=== PATIENT | female | born 1955 | race Caucasian/White ===

== ENCOUNTER 2020-03-30 10:51 | Outpatient (CLI) | payer OTHER, SELFPAY ==
--- NOTE | ~2020-03-30 | MM_ITS ---
EXAMINATION: MM screening carlos BI w marzena HISTORY: Screening mammogram TECHNIQUE: Craniocaudal and mediolateral oblique 3-D tomosynthesis images were obtained and synthetic 2-D images were generated. CAD analysis was submitted and interpreted. COMPARISON: 12/29/2017, 12/28/2015, 11/01 2014 bilateral digital screening mammogram examinations BREAST PARENCHYMAL COMPOSITION: There are scattered areas of fibroglandular density. FINDINGS: Biopsy marker on the left breast; history of prior benign left breast biopsy. There is no e vidence of suspicious mass, calcification, or architectural distortion to suggest malignancy in eithe r breast. There has been no suspicious interval change. IMPRESSION: 1. No mammographic evidence of malignancy. 2. Recommend routine screening mammography in one year. BI-RADS Category 2: Benign finding(s). Reviewed, dictated and finalized at location A.
== END 2020-03-30 10:52 | disposition home or self-care (01) ==
PROVIDERS: PCP Family Medicine; Visit Provider Obstetrics & Gynecology
DX: Z12.31 Encounter for screening mammogram for malignant neoplasm of breast (principal)
CPT/HCPCS: 77063; 77067

== ENCOUNTER 2021-10-08 14:34 | Outpatient (CLI) | payer BC, SELFPAY ==
--- NOTE | ~2021-10-08 | MM_ITS ---
EXAMINATION: MM screening carlos BI w marzena HISTORY: Screening mammogram TECHNIQUE: Craniocaudal and mediolateral oblique 3-D tomosynthesis images were obtained and synthetic 2-D images were generated. CAD analysis was submitted and interpreted. COMPARISON: 03/30/2020, 12/25/2017, 12/28/2015 bilateral screening mammogram examinations BREAST PARENCHYMAL COMPOSITION: The breasts are almost entirely fatty. FINDINGS: There is a biopsy marker on the left; history of prior benign left breast biopsy. There is no evidence of suspicious mass, calcification, or architectural distortion to suggest malignancy in e ither breast. There has been no suspicious interval change. IMPRESSION: 1. No mammographic evidence of malignancy. 2. Recommend routine screening mammography in one year. BI-RADS Category 1: Negative Reviewed, dictated and finalized at location A.
== END 2021-10-08 14:35 | disposition home or self-care (01) ==
PROVIDERS: PCP Family Medicine; Visit Provider Family Medicine
DX: Z12.31 Encounter for screening mammogram for malignant neoplasm of breast (principal)
CPT/HCPCS: 77063; 77067

== ENCOUNTER 2023-08-11 14:41 | Outpatient (CLI) | payer MEDICARE, BC, SELFPAY ==
--- NOTE | ~2023-08-11 | MM_ITS ---
EXAMINATION: MM screening carlos BI w marzena HISTORY: Screening mammogram TECHNIQUE: Craniocaudal and mediolateral oblique 3-D tomosynthesis images were obtained and synthetic 2-D images were generated. CAD analysis was submitted and interpreted. COMPARISON: No prior mammogram is available for comparison at this institution. BREAST PARENCHYMAL COMPOSITION: The breasts are almost entirely fatty. FINDINGS: There is no evidence of suspicious mass, calcification, or architectural distortion to sugg est malignancy in either breast. There has been no suspicious interval change. IMPRESSION: 1. No mammographic evidence of malignancy. 2. Recommend routine screening mammography in one year. BI-RADS Category 1: Negative Reviewed, dictated and finalized at location A. 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
== END 2023-08-11 14:42 | disposition home or self-care (01) ==
PROVIDERS: PCP Family Medicine; Visit Provider Family Medicine
DX: Z12.31 Encounter for screening mammogram for malignant neoplasm of breast (principal)
CPT/HCPCS: 77063; 77067

== ENCOUNTER 2023-10-26 07:57 | Outpatient (CLI) | payer MEDICARE, SELFPAY ==
[2023-10-26 13:18] LABS: Basophils Absolute Auto 0.1 K/mm3 (0.0-0.1); Eosinophils Absolute Auto 0.2 K/mm3 (0-0.3); Eosinophils Percent Auto 3.7 % (0-4.4); Hematocrit 43.3 % (37.0-47.0); Hemoglobin 14.2 g/dL (12.0-15.0); Immature Granulocyte Absolute 0.04 K/mm3 (0.00-0.031); Immature Granulocyte Percent A 0.6 % (0-0.5); Lymphocytes Absolute Auto 2.63 K/mm3 (0.9-3.2); Lymphocytes Percent Auto 42.6 % (18.3-44.2); Mean Corpuscular HGB Conc 32.8 g/dl (32-36); Mean Corpuscular Hemoglobin 29.6 pg (26-34); Mean Corpuscular Volume 90.4 fl (80-100); Mean Platelet Volume 9.8 fl (7.4-10.4); Monocytes Absolute Auto 0.6 K/mm3 (0.1-0.6); Monocytes Percent Auto 9.7 % (2.6-8.5); Neutrophils Absolute Auto 2.6 K/mm3 (1.3-6.7); Neutrophils Percent Auto 42.4 % (45.5-73.1); Platelet Count Result 259 k/mm3 (150-375); Red Blood Count 4.79 M/mm3 (4.2-5.4); Red Cell Distribution Width 13.3 % (11.5-14.5); White Blood Count 6.2 K/mm3 (4.5-10.0)
[2023-10-26 13:42] LABS: Alanine Aminotransferase 22 U/L (6-35); Albumin Level 4.6 g/dL (3.5-5.1); Alkaline Phosphatase 68 U/L (38-126); Anion Gap 7 mmol/L (4-12); Aspartate Amino Transferase 37 U/L (14-36); Bilirubin,Total 0.6 mg/dL (0.2-1.3); Blood Urea Nitrogen 17 mg/dL (7-17); Calcium 9.3 mg/dL (8.4-10.2); Carbon Dioxide 27 mmol/L (22-30); Chloride 106 mmol/L (98-107); Cholesterol 229 mg/dL (0-200); Estimated Glomerular Filt Rate > 60; Glucose 89 mg/dL (65-110); HDL Direct 43 mg/dL; Potassium 4.2 mmol/L (3.4-5.0); Sodium 140 mmol/L (137-145); Triglycerides 291 mg/dL (<150)
[2023-10-26 13:44] LABS: Vitamin D 25 Hydroxy 44.9 ng/mL
[2023-10-26 13:53] LABS: LDL Cholesterol Direct 49 mg/dL
== END 2023-10-26 07:58 | disposition home or self-care (01) ==
PROVIDERS: PCP Family Medicine; Visit Provider Family Medicine
DX: E78.5 Hyperlipidemia, unspecified (principal); E03.9 Hypothyroidism, unspecified; E53.8 Deficiency of other specified B group vitamins; E55.9 Vitamin D deficiency, unspecified; Z12.12 Encounter for screening for malignant neoplasm of rectum; Z12.11 Encounter for screening for malignant neoplasm of colon
CPT/HCPCS: 36415; 80053; 80061; 82306; 82607; 84443; 85025

== ENCOUNTER 2023-11-11 12:36 | Emergency (ER) | payer MEDICARE, SELFPAY ==
--- NOTE | ~2023-11-11 | XR_ITS ---
EXAMINATION: XR ankle LT min 3V DATE: 11/11/2023 12:57 INDICATION: Left ankle pain. TECHNIQUE: 4 views of left ankle were obtained. COMPARISON: Left ankle radiographs 05/05/2017 FINDINGS: Bone alignment is normal. No fracture. Joint spaces are normal. There is an enthesophyte at plantar aspect of calcaneal tuberosity. There is ankle soft tissue swelling. IMPRESSION: 1. No fracture. Reviewed, dictated and finalized at location A. IMPRESSION: 1. No fracture.
[2023-11-11 12:37] VITALS: BP 163/82; PULSE 69; RESP 20; TEMP 36.5; O2SAT 99
--- NOTE | 2023-11-11 13:17 | ED.LOWEXIN ---
HPI - Extremity Injury (Lower) General Chief Complaint: Extremity Injury, Lower Stated Complaint: left ankle pain Time Seen by Provider: 11/11/23 12:38 History of Present Illness HPI Narrative: 67-year-old female presents emergency room for evaluation of left ankle pain. Patient states that she has rolled her left ankle on multiple occasions over the past 2 months. States she normally wears shoe inserts for her flatfeet, but they were recently he chewed up by a dog. States the pain is worse when she is up on her feet. Pain starts from below her left ankle radiates into her Achilles heel. Has noticed the swelling that is not going away with ibuprofen. Related Data Home Medications Medication Instructions Recorded Confirmed loratadine 10 mg tablet (Claritin) 10 mg PO DAILY 11/18/21 10/28/22 triamcinolone acetonide 55 mcg intranasal 11/18/21 10/28/22 mcg/actuation nasal spray,aerosol Allergies Allergy/AdvReac Type Severity Reaction Status Date / Time ezetimibe [From Zetia] AdvReac cramps in Verified 11/11/23 12:44 hands Review of Systems Review of Systems: ROS unremarkable except for noted in HPI PMFSH Past Medical History Medical History Allergic reaction to bee sting Allergic rhinitis Anxiety Dyslipidemia Endometriosis Environmental allergies Hypothyroid Mitral valve prolapse onset age 33 Osteoarthritis Recurrent herpes labialis Toe fracture, left 11/1998 Vitamin D deficiency Surgical History Surgical History History of total hysterectomy (~1988) Family History Family History Father Family history of lung cancer Mother Family history of malignant neoplasm of uterus Social History Social History Smoking status: Never smoker Second hand tobacco smoke exposure: No Alcohol intake: current Alcohol use details: consumes 2 glasses of wine weekly Substance use: never Substance use type: does not use Lack of Transportation: No Lack of Food: Never True Current Housing: I Have Housing Concerned About Future Housing: No Difficulty Paying Gas/Electric Bills: No Difficulty Paying for Meds: No Currently Unemployed: No Education: Master's Degree or Higher Difficulty w/ Childcare or Family Care: No Living arrangements: with family Additional living arrangements comments: Occupation/Education: retired Gender identity (if verbalized by the patient): Female Sexual Orientation (if Verbalized by the Patient): Straight or Heterosexual Spiritual care concerns: No Exam Narrative: GENERAL: Well-appearing, well-nourished, no physical limitations, and in no acute distress. HEAD: Normocephalic, atraumatic. EYES: Conjunctivae normal, PERRLA and EOMI. CHEST: Clear to auscultation. No respiratory distress. No wheezes rales or rhonchi. No tenderness. HEART: Regular rate and rhythm. No murmur heard. Normal peripheral pulses. EXTREMITIES: Left ankle: TTP with +STS to lateral malleolus that extends along the tendon into the achilles tendon, No joint laxity SKIN: Warm, dry, no rash. No noted wounds NEURO: No focal deficits. Alert and oriented x3. MAEW. CN's II-XI intact bilaterally, normal gait PSYCH: Cooperative. Normal mood and affect. Course Vital Signs Vital signs: Vital Signs Temperature 36.5 C 11/11/23 12:37 Pulse Rate 69 11/11/23 12:37 Respiratory Rate 20 11/11/23 12:37 Blood Pressure 163/82 H 11/11/23 12:37 Pulse Oximetry 99 11/11/23 12:37 Oxygen Delivery Room Air 11/11/23 12:37 Temperature 36.5 C 11/11/23 12:37 Pulse Rate 69 11/11/23 12:37 Respiratory Rate 20 11/11/23 12:37 Blood Pressure 163/82 H 11/11/23 12:37 Pulse Oximetry 99 11/11/23 12:37 Oxygen Delivery Room Air
== END 2023-11-11 13:24 | disposition home or self-care (01) ==
LOC: ANHED 13:20
PROVIDERS: Emergency Provider Nurse Practitioner Family; PCP Family Medicine
DX: M25.572 Pain in left ankle and joints of left foot (principal); M76.822 Posterior tibial tendinitis, left leg; E78.5 Hyperlipidemia, unspecified; E55.9 Vitamin D deficiency, unspecified; E03.9 Hypothyroidism, unspecified
CPT/HCPCS: 73610; 99283

== ENCOUNTER 2024-10-21 11:40 | Inpatient (IN) | payer MEDICARE, SELFPAY ==
[2024-10-21] VITALS (16 sets, daily range): BP systolic 112–167; BP diastolic 53–79; PULSE 71–104; RESP 16–22; TEMP 36.7–36.8; O2SAT 97–100; BMI 36.5
--- NOTE | 2024-10-21 | ECHO_ITS ---
Patient Info Name: Maribel Hankins Age: 68 years : 1955 Gender: Female Ht: 62 in Wt: 205 lbs BSA: 2.06 m2 HR: 78 bpm BP: 130 / 66 mmHg Heart Rhythm: Sinus Rhythm Technical Quality: Good Exam Date: 10/21/2024 2:21 PM Patient Status: I Admit Date: 10/21/2024 Exam Type: CA echo dop color flow w con Complete two-dimensional, color flow and Doppler transthoracic echocardiogram is performed with contrast to opacify the left ventricle and to improve the deliniation of the left ventricle endocardial borders. Staff Referring Physician: Lupe Aldana III Head Neck Surgeon: Andreina Us Attending Provider: Mona Duran MD Contrast/Agitated Saline Contrast/Ag. Saline: Definity Amount: 2.00 ml Existing IV Access: Yes IV Access Condition: patent with no signs of infiltration Summary 1. Left ventricular chamber dimension is normal. 2. Left ventricular systolic function is normal, estimated at 55-60. 3. There is moderately increased left ventricular wall thickness. 4. The left ventricular diastolic function is grade I diastolic dysfunction. 5. The inferior wall, basal inferolateral wall, and mid inferolateral wall are hypokinetic. 6. Left atrial chamber dimension is mildly enlarged. 7. There is moderate aortic valve sclerosis. 8. There is mild to moderate mitral valve regurgitation. 9. There is mild tricuspid valve regurgitation. 10. There is mild pulmonic regurgitation. Left Ventricle Left ventricular chamber dimension is normal. Left ventricular systolic function is normal, estimated at 55-60. There is moderately increased left ventricular wall thickness. The left ventricular diastolic function is grade I diastolic dysfunction. The inferior wall, basal inferolateral wall, and mid inferolateral wall are hypokinetic. All other fink appear normal. Right Ventricle Right ventricular chamber dimension is normal. Right ventricular systolic function is normal. Left Atria Left atrial chamber dimension is mildly enlarged. Right Atria Right atrial chamber dimension is normal. Atrial Septum Intact interatrial septum visualized by color flow imaging. Aortic Valve The aortic valve is trileaflet. There is moderate aortic valve sclerosis. There is no aortic valve stenosis. There is trace aortic valve regurgitation. Pulmonic Valve The pulmonic valve is normal. There is no pulmonic valve stenosis. There is mild pulmonic regurgitation. Mitral Valve The mitral valve has normal leaflets. There is no mitral valve stenosis. There is mild to moderate mitral valve regurgitation. Tricuspid Valve The tricuspid valve leaflets are normal. There is no significant tricuspid valve stenosis. There is mild tricuspid valve regurgitation. No pulmonary hypertension, estimated pulmonary arterial systolic pressure is 35 mmHg. Pericardium/Pleural The pericardium appears normal. There is no pericardial effusion. Inferior Vena Cava Normal inferior vena cava with >50% collapse upon inspiration consistent with normal right atrial pressure, 8 mmHg. Aorta The aortic root size at the sinus of Valsalva is normal. Left Ventricular Outflow Tract Name Value Normal LVOT 2D LVOT Diameter 2.0 cm LVOT Doppler LVOT Peak Velocity 117 cm/s LVOT Peak Gradient 5 mmHg LVOT Mean Gradient 3 mmHg LVOT VTI 27 cm LVOT Stroke Volume 82 ml LVOT CO 16.7 l/min LVOT CI 8.1 l/min/m2 Pulmonic Valve Name Value Normal PV Doppler PV Peak Velocity 96 cm/s PV Peak Gradient 4 mmHg Mitral Valve Name Value Normal MV Diastolic Function MV E Peak Velocity 57 cm/s MV A Peak Velocity 102 cm/s MV E/A 0.6 MV Decel Time (PW) 387 ms MV Annular TDI MV E/e' (Septal) 8.1 MV E/e' (Lateral) 5.9 MV E/e' (Average) 7.0 Tricuspid Valve Name Value Normal TV Regurgitation Doppler TR Peak Velocity 262 cm/s TR Peak Gradient 15 mmHg Estimated PAP/RSVP RA Pressure 8 mmHg <=5 PA Systolic Pressure 35 mmHg <36 RV Systolic Pressure 35 mmHg <36 TV Annular TDI TV Lateral Lori s' Velocity 12.9 cm/s >=9.5 Aorta Name Value Normal Ascending Aorta Ao Root Diameter (MM) 3.4 cm Ao Root Diam Index (MM) 1.6 cm/m2 Aortic Valve Name Value Normal AV Regurgitation 2D LVOT Area 3.1 cm2 Ventricles Name Value Normal LV Dimensions 2D/MM IVS Diastolic Thickness (2D) 1.3 cm 0.6-1.0 LVID Diastole (2D) 4.0 cm 3.8-5.2 LVIW Diastolic Thickness (2D) 1.3 cm 0.6-0.9 LVID Systole (2D) 3.1 cm 2.2-3.5 LVOT Diameter 2.0 cm LV Mass (2D Cubed) 191.08 g 67.00-162.00 LV Mass Index (2D Cubed) 93 g/m2 43-95 Relative Wall Thickness (2D) 0.67 <=0.42 LV Fractional Shortening/Ejection Fraction 2D/MM LV Fractional Shortening (2D) 23 % 27-45 LV EF (2D Teichvernz) 47 % LV Diastolic Volume (4C MOD) 117 ml LV EF (4C MOD) 51 % LV Diastolic Volume (2C MOD) 62 ml LV EF (2C MOD) 65 % LV Diastolic Volume (BP MOD) 91 ml 46-106 LV Diastolic Volume Index (BP MOD) 44 ml/m2 29-61 LV Systolic Volume (BP MOD) 37 ml 14-42 LV Systolic Volume Index (BP MOD) 18 ml/m2 8-24 LV EF (BP MOD) 59 % 54-74 LV Diastolic Length (4C) 8.7 cm LV Systolic Length (4C) 6.7 cm LV Stroke Volume (4C MOD) 60 ml RV Dimensions 2D/MM RVID Diastole (2D) 3.8 cm 2.1-3.5 Atria Name Value Normal LA Dimensions LA Dimension (MM) 2.9 cm 2.7-3.8 LA Volume (4C A-L) 55 ml LA Volume (BP A-L) 50 ml RA Dimensions RA Systolic Major Grayling Length (4C) 5.1 cm 2.2-2.8 RA Area (4C) 17.1 cm2 <=18.0 Wall Motion Scoring Wall Motion Scoring Index: 1.29 Report Signatures
--- OUTSIDE RECORDS SUMMARY | 2024-10-21 11:45 | XMS_ITS | Referral Summary ---
Author Organization [facility] [place] [address] Address [address] [place] [address] Care Team Providers Care Crane Engineer Name Role Phone Lisbet Hammond MD Primary Care Provider Allergies No known active allergies Medications atorvastatin (LIPITOR) 80 mg tablet Take 80 mg by mouth daily Active Active Problems Problem Noted Date Diagnosed Date Precordial pain 04/12/2019 H/O mitral valve disease 04/12/2019 Mixed hyperlipidemia 04/12/2019 Elevated blood pressure reading 04/12/2019 Elevated serum creatinine 04/12/2019 Psychosocial stressors 04/12/2019 Social History Tobacco Use Types Packs/Day Years Used Date Smoking Tobacco: Never Smokeless Tobacco: Never Alcohol Use Standard Drinks/Week Comments Yes 0 (1 standard drink = 0.6 oz pur e alcohol) AUDIT-C Answer Date Recorded Frequency of Alcohol Consumption Monthly or less 04/12/2019 Average Number of Drinks Not on file 019 Frequency of Binge Drinking Not on file 10/2018 Personal Safety Answer Date Recorded Getting School Help Needed Not on file 08/21 Comments Unknown Sex and Gender Information Value Date Recorded Sex Assigned at Not on file 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 [address] [place] [address] Care Teams Crane Engineer Relationship Specialty Start Date End Date Lisbet Hammond MD PCP - General Family Practice 03/25/19
--- OUTSIDE RECORDS SUMMARY | 2024-10-21 11:45 | XMS_ITS | Clinical Summary ---
Author Organization [facility] Address [address] [place] [address] Phone Care Team Providers Care Certified Physician'S Assistant Name Role Phone Lisbet Hammond MD Primary Care Provider Social History Tobacco Use Types Packs/Day Years Used Date Smoking Tobacco: Never Assessed Comments Unknown Sex and Gender Information Value Date Recorded Sex Assigned at Not on file Legal Sex Female 9:01 PM CDT Gender Identity Not on file Sexual Orientation Not on file Plan of Treatment Health Maintenance Due Date Last Done Comments DEXA Bone Density 1955 Hepatitis C Virus (HCV) Screening 1955 TdaP Immunization 1955 Colonoscopy 2002 Colorectal Cancer Screening 2002 Cologuard 12/06/2007 Immunochemical Fecal Occult Blood 12/06/2007 Mammogram 12/06/2007 Pneumococcal Immunization (5 0+ years) (1 of 1 - PCV) 12/06/2007 Zoster Immunization (1 of 2) 12/06/2007 Influenza Immunization (#1) 2024 10/0 10/2018, 02/24/2018, 03/06/2016 SARS-COV-2 Immunization ( season) 2024 09/20/2020, 08/28/2020 Respiratory Syncytial Virus (RSV) Immunization (Adult) (1 - 1-dose 75+ series) 2032 Hepatitis B Immunization Aged Out No longer eligible based on patient's age to complete this topic Meningococcal Immunization (ACWY) Aged Out No longer eligible b ased on patient's age to complete this topic Rotavirus Immunization Aged Out No lo nger eligible based on patient's age to complete this topic Insurance [facility] Care Teams Certified Physician'S Assistant Relationship Specialty Start Date End Date Lisbet Hammond MD PCP - General Family Medicine 05/18/20
--- OUTSIDE RECORDS SUMMARY | 2024-10-21 11:45 | XMS_ITS | Clinical Summary ---
Author Organization [facility] [place] [address] Address [address] [place] [address] Care Team Providers Care Coupon Redemption Clerk Name Role Phone Lisbet Hammond MD Primary Care Provider Allergies No known active allergies Medications atorvastatin (LIPITOR) 80 mg tablet Take 80 mg by mouth daily Active Active Problems Problem Noted Date Diagnosed Date Precordial pain 04/12/2019 H/O mitral valve disease 04/12/2019 Mixed hyperlipidemia 04/12/2019 Elevated blood pressure reading 04/12/2019 Elevated serum creatinine 04/12/2019 Psychosocial stressors 04/12/2019 Surgical History Surgery Date Site/Laterality Comments HYSTERECTOMY Medical History Medical History Date Comments Hyperlipidemia Diverticulitis Arthritis Family History Medical History Relation Name Comments Hypertension Brother Lung cancer Brother 62 y.o. Lung cancer Father 71 y.o. 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 CHOICE PLUS Care Teams Coupon Redemption Clerk Relationship Specialty Start Date End Date Lisbet Hammond MD PCP - General Family Practice 03/25/19
--- OUTSIDE RECORDS SUMMARY | 2024-10-21 11:45 | XMS_ITS | Continuity of Care Document ---
Author Organization [facility] Address [address] [facility] [place] [address] [place] [address] Phone Care Team Providers Care Rendering Equipment Tender Name Role Phone Josesito Berry MD Unavailable Unavailable Advance Directives Directive Yes / No Effective Date File Name No Information Encounters Encounter Description Practice Location Reason(s) For Visit Diagnoses Date Provider Providers Copied on Encounter [facility], [address] [place], [place], [id number], [place] tel:[phone] [facility] No Information Jamal Bellamy. [address] [facility] [place], [id number], [place]. tel:[phone] Family History Family Member Type Diagnosis Age At Onset No Information Payers Payer name Insurance type Covered libertarian ID Authoriza tion(s) No Information Social History Type Description Quantity Date Captured Comments Sex Female Smoking Status No Information Chief Complaint And Reason For Visit No Information Plan Of Treatment Date Type Action Status No Information History Of Present Illness Encounter Date Complaint History Of Prese nt Illness No Information Instructions Date Instruction Additional Infor mation No Information Assessments Type Assessment Date No Information
--- NOTE | 2024-10-21 11:47 | ECG_ITS ---
Test Date: 2024-10-21 11:39:40 Measurements Intervals Thatcher Rate: 69 P: 54 MD: 164 QRS: -10 QRSD: 103 T: 110 QT: 401 QTc: 431 Interpretive Statements SINUS RHYTHM WITH OCCASIONAL SUPRAVENTRICULAR PREMATURE COMPLEXES INFERIOR MYOCARDIAL INFARCTION , POSSIBLY ACUTE [40+ ms Q WAVE AND/OR ST/T ABNORMALITY IN II/aVF] ACUTE GA No previous ECG available for comparison Electronically Signed On 10-21-2024 15:10:41 CDT by Mona Duran M.D.
--- NOTE | 2024-10-21 11:49 | ED_ITS ---
HPI - Chest Pain General Chief Complaint: Chest Pain Stated Complaint: cp Time Seen by Provider: 10/21/24 11:43 History of Present Illness HPI narrative: Pt presents with CP like pressure on chest for about an hour and a half. Pt is SOB and diaphoretic. Pt had sprayed 7 ealier and thought it was related to that. EMS called STEMI in field. ASA given. Related Data Home Medications Medication Instructions Recorded Confirmed Last Taken Type loratadine 10 mg tablet (Claritin) 10 mg PO DAILY 11/18/21 10/21/24 10/20/24 History triamcinolone acetonide 55 55 mcg intranasal DAILY PRN 11/18/21 10/21/24 Unknown History mcg/actuation nasal spray,aerosol congestion cod liver oil 1 cap PO ONCE 01/06/24 10/21/24 10/20/24 History Allergies Allergy/AdvReac Type Severity Reaction Status Date / Time ezetimibe (From Zetia) AdvReac cramps in Verified 10/21/24 11:46 hands Review of Systems 2 Review of Systems: All systems reviewed & are unremarkable except as noted in HPI and below PMFSH Past Medical History Medical History Allergic reaction to bee sting Hypothyroid Recurrent herpes labialis Vitamin D deficiency Anxiety Endometriosis Dyslipidemia Environmental allergies Osteoarthritis Toe fracture, left 11/1998 Mitral valve prolapse onset age 33 Allergic rhinitis Surgical History Surgical History History of total hysterectomy (~1988) Family History Family History Father Family history of lung cancer Mother Family history of malignant neoplasm of uterus Social History Social History Smoking status: Never smoker Second hand tobacco smoke exposure: No Alcohol intake: current Drinks per week: 1 Alcohol use details: consumes 2 glasses of wine weekly Substance use: never Substance use type: does not use Do You Feel Safe in your Home?: Yes Lack of Transportation: No Lack of Food: Never True Current Housing: I Have Housing Concerned About Future Housing: No Difficulty Paying Gas/Electric Bills: No Difficulty Paying for Meds: No Currently Unemployed: No Education: Master's Degree or Higher Difficulty w/ Childcare or Family Care: No Living arrangements: with family Additional living arrangements comments: Occupation/Education: retired Gender identity (if verbalized by the patient): Female Sexual Orientation (if Verbalized by the Patient): Straight or Heterosexual Spiritual care concerns: Yes (Protestant) Exam 2 Const: General: healthy appearing and no acute distress Nutritional Appearance: well nourished Orientation/consciousness: patient oriented x3 Limitations: no limitations Chest: Chest palpation & inspection: normal inspection of the chest Resp: Effort & Inspection: normal respiratory effort Auscultation: clear to auscultation bilaterally Cardio: Rate: regular rate Rhythm: regular rhythm GI: GI Palp: Yes Soft to palpation and No Tenderness to palpation present (GI) Auscultation: normal bowel sounds Skin: General skin exam: normal color Wounds: no wounds Other: diaphoretic Neuro: General: patient oriented x3 and moves all extremities Cranial nerves: Yes Nystagmus not present Speech: normal speech Extrem: General: normal to inspection and no clubbing, cyanosis or edema Psych: Mental Status: mental status grossly normal Affect: normal affect Course Vital Signs Vital signs: Vital Signs Temperature 98.2 F 10/21/24 11:36 Pulse Rate 74 10/21/24 11:36 Respiratory Rate 16 10/21/24 11:36 Blood Pressure 130/66 10/21/24 11:36 Pulse Oximetry 98 10/21/24 11:36 Temperature 98.3 F 10/21/24 16:00 Pulse Rate 80 10/21/24 16:57 Respiratory Rate 16 10/21/24 16:57 Blood Pressure 132/56 L 10/21/24 16:57 Pulse Oximetry 99 10/21/24 16:57 MDM - Chest Pain MDM Narrative Medical decision making narrative: Pt presents with CP for [address] elevation with reciprocal changes. STEMI called. Dr Duran here. Brilenta and heparin given and pt taken to radiographer cardiac catheterization. Lab Data 10/21/24 11:45 10/21/24 11:45 Discharge Plan Discharge Clinical Impression: ST elevation (STEMI) myocardial infarction Patient Disposition: Still a Patient Condition: Critical
[2024-10-21] MEDS: TICAGRELOR 90 MG TABLET 180 MG PO (11:50)
[2024-10-21] MEDS: HEPARIN SODIUM 5,000 UNITS/ML VIAL 4000 UNITS IV PUSH (11:50)
--- NOTE | 2024-10-21 11:55 | PM.IMHP ---
H&P: HPI History of Present Illness Date/Time: 10/21/24 11:55 Chief Complaint: Chest pain Narrative: Maribel is a 68 year old female with hyperlipidemia, hypothyroidism, mitral valve prolapse who presented to [facility] as an EMS STEMI alert. Began having chest pain 1.5 hours prior to presentation. EKG here confirms inferior STEMI. blood bank laboratory technologist activated. Review of Systems Review of Systems: All systems reviewed & are unremarkable except as noted in HPI and below (HPI) PMFSH Past Medical History Medical History Allergic reaction to bee sting Hypothyroid Recurrent herpes labialis Vitamin D deficiency Anxiety Endometriosis Dyslipidemia Environmental allergies Osteoarthritis Toe fracture, left 11/1998 Mitral valve prolapse onset age 33 Allergic rhinitis Surgical History Surgical History History of total hysterectomy (~1988) Family History Family History Father Family history of lung cancer Mother Family history of malignant neoplasm of uterus Social History Social History Smoking status: Never smoker Second hand tobacco smoke exposure: No Alcohol intake: current Alcohol use details: consumes 2 glasses of wine weekly Substance use: never Substance use type: does not use Lack of Transportation: No Lack of Food: Never True Current Housing: I Have Housing Concerned About Future Housing: No Difficulty Paying Gas/Electric Bills: No Difficulty Paying for Meds: No Currently Unemployed: No Education: Master's Degree or Higher Difficulty w/ Childcare or Family Care: No Living arrangements: with family Additional living arrangements comments: Occupation/Education: retired Gender identity (if verbalized by the patient): Female Sexual Orientation (if Verbalized by the Patient): Straight or Heterosexual Spiritual care concerns: No Meds Home Medications and Allergies Home Medications Medication Instructions Recorded Confirmed Type loratadine 10 mg tablet (Claritin) 10 mg PO DAILY 11/18/21 01/06/24 History triamcinolone acetonide 55 mcg intranasal 11/18/21 01/06/24 History mcg/actuation nasal spray,aerosol epinephrine 0.3 mg/0.3 mL 0.3 mg (0.3 mL) IM ONCE #2 ea 12/31/21 01/06/24 Rx injection, auto-injector (EpiPen 2-Bryan) cod liver oil 1 cap PO ONCE 01/06/24 01/06/24 History atorvastatin 80 mg tablet See Rx Instructions .Route 09/12/24 Rx .COMPLEX #90 tabs levothyroxine 50 mcg tablet See Rx Instructions .Route 09/12/24 Rx .COMPLEX #90 tabs Allergies Allergy/AdvReac Type Severity Reaction Status Date / Time ezetimibe (From Zetia) AdvReac cramps in Verified 10/21/24 11:46 hands Vital Signs Vital Signs - 24 hr 10/21/24 11:36 Temperature 36.8 C Pulse Rate 74 Respiratory Rate 16 Blood Pressure 130/66 Pulse Oximetry 98 Exam Const: General: uncomfortable Eyes: General: appearance normal, both eyes and all related structures Sclera: sclerae normal Resp: Effort & Inspection: normal respiratory effort Cardio: Rate: regular rate Rhythm: regular rhythm Skin: General skin exam: normal color Neuro: Speech: normal speech Psych: Mental Status: mental status grossly normal Affect: normal affect Assessment and Plan Assessment and plan (1) STEMI (ST elevation myocardial infarction): Code(s): I21.3 - ST elevation (STEMI) myocardial infarction of unspecified site Status: Acute Assessment and Plan: Proceed with emergent C. (2) Mitral valve prolapse: Code(s): I34.1 - Nonrheumatic mitral (valve) prolapse Status: Acute Assessment and Plan: Echo ordered and pending. (3) Dyslipidemia: Code(s): E78.5 - Hyperlipidemia, unspecified Status: Acute Assessment and Plan: Check lipid panel. Continue home Atorvastatin 80mg once daily.
[2024-10-21 11:58] LABS: Basophils Absolute Auto 0.1 K/mm3 (0.0-0.1); Eosinophils Absolute Auto 0.3 K/mm3 (0-0.3); Eosinophils Percent Auto 2.9 % (0-4.4); Hematocrit 41.1 % (37.0-47.0); Hemoglobin 13.2 g/dL (12.0-15.0); Immature Granulocyte Absolute 0.01 K/mm3 (0.00-0.031); Immature Granulocyte Percent A 0.1 % (0-0.5); Lymphocytes Absolute Auto 5.06 K/mm3 (0.9-3.2); Lymphocytes Percent Auto 52.1 % (18.3-44.2); Mean Corpuscular HGB Conc 32.1 g/dl (32-36); Mean Corpuscular Hemoglobin 28.8 pg (26-34); Mean Corpuscular Volume 89.7 fl (80-100); Mean Platelet Volume 9.8 fl (7.4-10.4); Monocytes Absolute Auto 1.1 K/mm3 (0.1-0.6); Monocytes Percent Auto 11.2 % (2.6-8.5); Neutrophils Absolute Auto 3.2 K/mm3 (1.3-6.7); Neutrophils Percent Auto 32.7 % (45.5-73.1); Platelet Count Result 321 k/mm3 (150-375); Red Blood Count 4.58 M/mm3 (4.2-5.4); Red Cell Distribution Width 13.5 % (11.5-14.5); White Blood Count 9.7 K/mm3 (4.5-10.0)
--- NOTE | 2024-10-21 11:58 | P.SEDATION_ITS ---
Moderate Sedation Note-Pt Data Patient Data Diagnosis: STEMI Present Complaint: STEMI Procedure to be performed/Plan: Primary PCI Allergies Allergy/AdvReac Type Severity Reaction Status Date / Time ezetimibe (From Zetia) AdvReac cramps in Verified 10/21/24 11:46 hands Home Medications Medication Instructions Recorded Confirmed Type loratadine 10 mg tablet (Claritin) 10 mg PO DAILY 11/18/21 01/06/24 History triamcinolone acetonide 55 mcg intranasal 11/18/21 01/06/24 History mcg/actuation nasal spray,aerosol epinephrine 0.3 mg/0.3 mL 0.3 mg (0.3 mL) IM ONCE #2 ea 12/31/21 01/06/24 Rx injection, auto-injector (EpiPen 2-Bryan) cod liver oil 1 cap PO ONCE 01/06/24 01/06/24 History atorvastatin 80 mg tablet See Rx Instructions .Route 09/12/24 Rx .COMPLEX #90 tabs levothyroxine 50 mcg tablet See Rx Instructions .Route 09/12/24 Rx .COMPLEX #90 tabs Current Medications: Active Medications Heparin Sodium (Porcine) (Heparin Sodium 5,000 Units/Ml Vial) 4,000 units IV PUSH PRN PRN PRN Reason: aPTT 36-49 Sedation/Anesthesia: No previous sedation/anesthesia problems (including family history). [facility] Past Medical History Medical History Allergic reaction to bee sting Hypothyroid Recurrent herpes labialis Vitamin D deficiency Anxiety Endometriosis Dyslipidemia Environmental allergies Osteoarthritis Toe fracture, left 11/1998 Mitral valve prolapse onset age 33 Allergic rhinitis Surgical History Surgical History History of total hysterectomy (~1988) Family History Family History Father Family history of lung cancer Mother Family history of malignant neoplasm of uterus Social History Social History Smoking status: Never smoker Second hand tobacco smoke exposure: No Alcohol intake: current Alcohol use details: consumes 2 glasses of wine weekly Substance use: never Substance use type: does not use Lack of Transportation: No Lack of Food: Never True Current Housing: I Have Housing Concerned About Future Housing: No Difficulty Paying Gas/Electric Bills: No Difficulty Paying for Meds: No Currently Unemployed: No Education: Master's Degree or Higher Difficulty w/ Childcare or Family Care: No Living arrangements: with family Additional living arrangements comments: Occupation/Education: retired Gender identity (if verbalized by the patient): Female Sexual Orientation (if Verbalized by the Patient): Straight or Heterosexual Spiritual care concerns: No Mod Sed Physical Exam Physical Exam Pre Procedural Exam: Normal: Lungs, Heart Rate, Heart Rhythm, Neuro Exam, Extremities and Skin and Variation: Appearance (In mild distress) Hours since solid foods: 0 Hours since liquid intake: 0 Mallampati Classification: class III Internal Medicine - PN: Obj Da Vital Signs Vital Signs: Vital Signs - 24 hr 10/21/24 11:36 Temperature 36.8 C Pulse Rate 74 Respiratory Rate 16 Blood Pressure 130/66 Pulse Oximetry 98 Meds/Results Medications: Active Medications Generic Name Dose Route Start Last Admin Trade Name Freq PRN Reason Stop Dose Admin Heparin Sodium (Porcine) 4,000 units 10/21/24 11:46 Heparin Sodium 5,000 Units/Ml Vial IV PUSH PRN PRN aPTT 36-49 Labs 10/21/24 11:45 10/21/24 11:45 ASA Classification/Sedation ASA Classification/Sedation ASA Class: IV Emergent: Yes Risks: Risks, benefits and alternatives explained and patient/family accepted plan for sedation. Patient re-evaluated immediately prior to sedation.
--- NOTE | 2024-10-21 12:04 | PC.NURSE ---
pt received Brilinta 180 mg and Heparin 4000 units per VORB from Dr Aldana
[2024-10-21 12:08] LABS: Alanine Aminotransferase 33 U/L (6-35); Albumin Level 4.4 g/dL (3.5-5.1); Alkaline Phosphatase 76 U/L (38-126); Anion Gap 9 mmol/L (4-12); Aspartate Amino Transferase 40 U/L (14-36); Bilirubin,Total 0.5 mg/dL (0.2-1.3); Blood Urea Nitrogen 16 mg/dL (7-17); Calcium 8.8 mg/dL (8.4-10.2); Carbon Dioxide 24 mmol/L (22-30); Chloride 106 mmol/L (98-107); Cholesterol 281 mg/dL (0-200); Estimated CRCL calculation 75 ml/min; Estimated Glomerular Filt Rate > 60; Glucose 124 mg/dL (65-110); HDL Direct 52 mg/dL; Potassium 3.4 mmol/L (3.4-5.0); Sodium 139 mmol/L (137-145); Triglycerides 297 mg/dL (<150)
[2024-10-21 12:15] LABS: INR 0.9; Prothrombin Time 11.9 Seconds (11.1-14.7)
[2024-10-21 12:16] LABS: Partial Thromboplastin Time 24.4 Seconds (22.3-36.8)
[2024-10-21 12:19] LABS: LDL Cholesterol Direct 48 mg/dL; Troponin I < 0.012 ng/mL (0.000-0.034)
--- NOTE | 2024-10-21 13:15 | WPDCARDPROC ---
Cardiac Cath Procedure Note Date of procedure:: 10/21/24 Performing physician:: CATHETERIZATION LABORATORY REPORT Procedure Date: 10/21/2024 Signal And Communications Maintainer: Mona Duran M.D., [facility] Referring Physician: Dr. Aldana ([facility]) Anesthesia: Versed and Fentanyl were ordered and given in my presence at 12:02, procedure ended at 13:05. Supervision of nurse monitored moderate sedation with Versed and Fentanyl was provided for 63 minutes. Total of Versed 1mg and Fentanyl 50mcg were administered by the Husbandry Person RN Vilma Garcia. Pre-op Diagnosis: Inferior STEMI Post-op Diagnosis: 1. Acute 100% occlusion of the proximal RCA (infarct-related artery) s/p PCI with HENRI x 2 in the proximal-mid RCA. 2. Residual obstructive disease in the mid LAD and mid LCX. Will plan for staged PCI at a later date. Procedure(s): 1. Moderate sedation 2. Ultrasound-guided access of the right radial artery 3. Coronary angiography 4. PCI of the proximal-mid RCA with HENRI x 2 (4.5mm x 18mm Cisco HENRI and 5.0mm x 18mm [place] HENRI in an overlapping fashion). 5. IVUS of the RCA Access Site: Right radial artery Brief History and Clinical Indications: Patient is a 68 year old female who is referred for emergent C for inferior STEMI. All risks, benefits and alternatives to left heart catheterization with or without percutaneous coronary intervention was discussed at length with the patient. Risk of complications including but not limited to bleeding, infection, arrhythmia, stroke, worsening kidney function, blood loss, groin hematoma, limb loss, emergency coronary artery bypass grafting, and even were discussed with the patient and all questions were answered. The patient understood and wished to proceed. Time out called, patient name, date of , medical record number, allergies, procedure performed, identify Signal And Communications Maintainer, patient and staff member concurred with accurate data, procedure carried on. Findings: LEFT HEART CATHETERIZATION FINDINGS: 1. Left main: The left main coronary artery is widely patent without any significant obstructive disease. The left main is short. 2. Left anterior descending: The mid portion of the LAD has a mild-moderate stenosis followed by a 70% stenosis. 3. Left circumflex: The mid portion of the LCX has an 80% stenosis followed by a tandem 99% stenosis. 4. Right coronary artery: The RCA is the dominant vessel. The RCA is 100% occluded in the proximal portion. There are [id number] collaterals filling the distal RCA branches. Description of Procedure and PCI: Informed consent signed and placed in the chart. Patient transferred to wood preserving plant laborer room. Prepped and draped in usual sterile fashion. 2% lidocaine injected subcutaneously in right wrist area. 22-gauge venipuncture catheter used to access the right radial artery under ultrasound guidance. 6-FR slender sheath placed in right radial artery. Nitroglycerine and Verapamil were given intraarterial through the sheath. Versacore wire advanced under fluoroscopy 5F Ultra 4 diagnostic catheter engaged Left Main Coronary Artery. 5F Ultra 4 diagnostic catheter engaged Right Coronary Artery Multiple orthogonal angiogram obtained and reviewed Angiomax was used for anticoagulation. 6F FR 4 guide catheter was used to intubate the RCA. 0.014 [place] coronary wire was passed in to the distal RCA. The lesion was pre-dilated with a 2.5mm x 15mm balloon inflated to high YANET. IVUS catheter advanced distal to the lesion and reference measurements obtained. A 5.0 mm x 18mm [place] HENRI was successfully deployed into mid RCA. Intracoronary NTG was administered. There was some haziness at the proximal stent edge, concerning for possible dissection. Attempted to advance a 5.0mm x 15mm Cisco HENRI to deploy in the proximal RCA to cover the dissection, however, unable to cross the stent across the bend to overlap with the previously deployed stent. Stent not deployed, removed. A 6F Guideliner was advanced over a 2.5mm balloon. Guideliner advanced to the proximal RCA. We were then able to advance a 4.5mm x 18mm [place] HENRI into the proximal RCA, placed overlapping to the mid RCA stent. The 4.5mm stent was successfully deployed. Follow-up angiograms showed a good result Coronary wire and guide-catheter were removed Pre-procedure - RUBY 0 flow Post-procedure - RUBY 3 flow No angiographic complications identified. Attempted to cross a 5F Pig[place] diagnostic catheter across aortic valve to obtain LVEDP, but unable to cross the catheter from right radial artery access. Hemostasis was achieved by application of TR band. Disposition: ICU Plan: Admit to ICU. DAPT for 1 year followed by ASA indefinitely. High intensity statin. Will plan for staged PCI on nonculprit-lesions as an outpatient. Continue aggressive medical therapy and risk factor modification. Mona Duran M.D. Interventional Cardiology
--- NOTE | 2024-10-21 13:26 | ECG_ITS ---
Test Date: 2024-10-21 16:01:01 Measurements Intervals [place] Rate: 77 P: 33 ND: 131 QRS: 6 QRSD: 99 T: 26 QT: 388 QTc: 441 Interpretive Statements SINUS RHYTHM INFERIOR MYOCARDIAL INFARCTION [40+ ms Q WAVE AND/OR ST/T ABNORMALITY IN II/aVF], OF INDETERMINATE AGE ABNORMAL ECG Compared to ECG 10/21/2024 11:39:40 No significant changes Electronically Signed On 10-22-2024 08:02:01 CDT by Kareem Stack M.D.
--- NOTE | 2024-10-21 13:39 | ADMGEN ---
This patient, Maribel Hankins, was admitted to Intensive Care Unit-2. Patient/family oriented to hospital policies and general routines including ID bracelet, bed and alarms, visiting hours, pain management, procedures, bathroom and other care routines, personal items, smoking policy, room service/diet, and visiting hours. Information on how to activate the Rapid Response Team has been discussed. Patient/Family are encouraged to report perceived risks to care and to ask questions if they do not understand what they are told or what they should do.
--- NOTE | 2024-10-21 14:19 | P.CONIN_ITS ---
Assessment and Plan Assessment and plan (1) STEMI (ST elevation myocardial infarction): Code(s): I21.3 - ST elevation (STEMI) myocardial infarction of unspecified site Status: Acute Assessment and Plan: 10/21: Patient presented with substernal chest pain which was associated with nausea, diaphoresis, shortness of breath, EMS called inferior STEMI in the field, cathode ray tube salvage processor was activated, patient was taken to cardiac cathode ray tube salvage processor where she was found to have 100% occlusion of the proximal RCA, status post HENRI x2 the proximal-mid RCA. Residual obstructive disease in the mid LAD and mid circumflex, plan for staged PCI at a later date by daycare provider. -Cardiology following close -continue aspirin, atorvastatin, ticagrelor -echocardiogram has been ordered (2) Dyslipidemia: Code(s): E78.5 - Hyperlipidemia, unspecified Status: Acute Assessment and Plan: Continue high-dose statin (3) Hypothyroid: Qualifiers: Hypothyroidism type: acquired Qualified Code(s): E03.9 - Hypothyroidism, unspecified Code(s): E03.9 - Hypothyroidism, unspecified Status: Acute Assessment and Plan: Will continue home levothyroxine Plan DVT prophylaxis: Status post STEMI Stress ulcer prophylaxis: None indicated Nutrition: Heart healthy diet Code Status: Full code Critical Care Time Spent: 47 minutes Due to a high probability of clinically significant, life threatening deterioration, the patient required my highest level of preparedness to intervene emergently and I personally spent this critical care time directly and personally managing the patient. This critical care time included obtaining a history; examining the patient; pulse oximetry; ordering and review of studies; arranging urgent treatment with development of a management plan; evaluation of patient's response to treatment; frequent reassessment; and discussions with other providers. It was exclusive of separately billable procedures and treating other patients and teaching time. Please see Assessment and Plan section and the rest of the note for further information on patient assessment and treatment This dictation may have been done utilizing a voice recognition system. Attempts have been made to correct errors. However, there may be uncorrected grammatical, spelling, and recognitions errors present. Pediatric Speech Language Pathologist Consult Note Consult date: 10/21/24 Reason for consult: Acute inferior ST-elevation myocardial injury status post HENRI x2 the proximal- mid RCA. Residual obstructive disease in the mid LAD and mid circumflex HPI: Maribel L Fore is a 68 year old female with past medical history of hypothyroidism, vitamin-D deficiency, anxiety, dyslipidemia, osteoarthritis, allergic rhinitis, mitral valve prolapse presented the ED on 10/21/2024 with complains of chest pain that started about 1.5 hours prior to presenting. Chest pain was accompanied by so shortness of breath, nausea and diaphoresis. EMS called STEMI in the field, cathode ray tube salvage processor was activated and patient was taken to the cardiac cathode ray tube salvage processor where she was found to have 100% occlusion of the proximal RCA, status post HENRI x2 the proximal-mid RCA. Residual obstructive disease in the mid LAD and mid circumflex, plan for staged PCI at a later date by daycare provider. Patient was transfer the ICU for further management Patient seen and examined upon our to the ICU. Very pleasant female, currently chest pain-free, denies any shortness of breath, nausea diaphoresis. Hemodynamically stable. Denies any tobacco, illicit drug use, drinks alcohol 2 to 3 times a year. Triglycerides 297 and cholesterol 281 on this admission Review of Systems 2 Review of Systems: All systems reviewed & are unremarkable except as noted in HPI and below PMFSH Past Medical History Medical History Allergic reaction to bee sting Hypothyroid Recurrent herpes labialis Vitamin D deficiency Anxiety Endometriosis Dyslipidemia Environmental allergies Osteoarthritis Toe fracture, left 11/1998 Mitral valve prolapse onset age 33 Allergic rhinitis Surgical History Surgical History History of total hysterectomy (~1988) Family History Family History Father Family history of lung cancer Mother Family history of malignant neoplasm of uterus Social History Social History Smoking status: Never smoker Second hand tobacco smoke exposure: No Alcohol intake: current Drinks per week: 1 Alcohol use details: consumes 2 glasses of wine weekly Substance use: never Substance use type: does not use Do You Feel Safe in your Home?: Yes Lack of Transportation: No Lack of Food: Never True Current Housing: I Have Housing Concerned About Future Housing: No Difficulty Paying Gas/Electric Bills: No Difficulty Paying for Meds: No Currently Unemployed: No Education: Master's Degree or Higher Difficulty w/ Childcare or Family Care: No Living arrangements: with family Additional living arrangements comments: Occupation/Education: retired Gender identity (if verbalized by the patient): Female Sexual Orientation (if Verbalized by the Patient): Straight or Heterosexual Spiritual care concerns: Yes (Baptism) Meds Home Medications and Allergies Home Medications Medication Instructions Recorded Confirmed Type loratadine 10 mg tablet (Claritin) 10 mg PO DAILY 11/18/21 10/21/24 History triamcinolone acetonide 55 mcg intranasal 11/18/21 01/06/24 History mcg/actuation nasal spray,aerosol epinephrine 0.3 mg/0.3 mL 0.3 mg (0.3 mL) IM ONCE #2 ea 12/31/21 10/21/24 Rx injection, auto-injector (EpiPen 2-Bryan) cod liver oil 1 cap PO ONCE 01/06/24 10/21/24 History atorvastatin 80 mg tablet See Rx Instructions .Route 09/12/24 10/21/24 Rx .COMPLEX #90 tabs levothyroxine 50 mcg tablet See Rx Instructions .Route 09/12/24 10/21/24 Rx .COMPLEX #90 tabs ticagrelor 90 mg tablet (Brilinta) 90 mg PO Q12HR #180 tabs 10/21/24 Rx Allergies Allergy/AdvReac Type Severity Reaction Status Date / Time ezetimibe (From Zetia) AdvReac cramps in Verified 10/21/24 11:46 hands Vital Signs Vital Signs - 24 hr 10/21/24 11:36 10/21/24 13:36 10/21/24 13:42 Temperature 98.2 F Pulse Rate 74 73 Pulse Rate [Right Radial] 73 Respiratory Rate 16 20 Blood Pressure 130/66 167/73 H 167/73 H Pulse Oximetry 98 97 Exam 2 Narrative: General: Pleasant female in no acute distress HEENT: Pupils equal reactive was clear is clear, moist oral mucosa Neck: Supple Respiratory: Clear to auscultation bilateral, no wheeze Cardiac: S1-S2 normal, regular rate and rhythm, no murmurs Abdomen: Soft, nontender, nondistended, normoactive bowel sounds Extremities: Right radial side with TR band, palpable radial pulse on the right side, no edema on the lower extremities, palpable pedal pulses Neuro: Patient is awake, alert, oriented x3, nonfocal, able to answer questions appropriately and follows simple commands in all extremities Skin: Warm, dry and Intact, no lesions noted Psych: Anxious with normal mentation Results Labs 10/21/24 11:45 10/21/24 11:45 Labs: Short CBC 10/21/24 Range/Units 11:45 WBC 9.7 (4.5-10.0) K/mm3 Hgb 13.2 (12.0-15.0) g/dL Hct 41.1 (37.0-47.0) % Plt Count 321 (150-375) k/mm3 BMP 10/21/24 11:45 Sodium 139 Potassium 3.4 Chloride 106 Carbon Dioxide 24 BUN 16 Creatinine 0.67 L Glucose 124 H Calcium 8.8 Cardiac Enzymes 10/21/24 Range/Units 11:45 Troponin I < 0.012 (0.000-0.034) ng/mL Liver Function 10/21/24 Range/Units 11:45 Total Bilirubin 0.5 (0.2-1.3) mg/dL AST 40 H (14-36) U/L ALT 33 (6-35) U/L Alkaline Phosphatase 76 (38-126) U/L Albumin 4.4 (3.5-5.1) g/dL Quality VTE Prophylaxis VTE prophylaxis: mechanical ordered Hospitalist MIPS Advance Care Plan I have confirmed that the patient's Advanced Care Plan is present, code status is documented, or surrogate decision maker is listed in patient medical record.: Yes Medication Reconciliation I have utilized all available resources to obtain, update and review the patients current medications (includes all prescriptions, OTC, herbals, cannabis, and nutritional supplements).: Yes
[2024-10-21 14:42] LABS: Hemoglobin A1C 5.4 % (<5.7)
[2024-10-21] MEDS: PERFLUTREN LIPID MICROSPHERES 1.5 ML VIAL DILUTED TO 10 ML TOTAL VOLUME IV PUSH (15:00)
--- NOTE | 2024-10-21 15:19 | IVDEFINITY ---
Prior to administration of IV Definity the patient was educated on the risks and benefits of the imaging enhancing agent including potential adverse side effects. The patient verbalized understanding. Allergies were verified. No exclusion criteria were identified and at least one of the following inclusion criteria were met: 1) physician request, 2) patient technically difficult to image (per the [place] [employer]chocardi[employer] guidelines of two or more segments not discernable within the apical view), or 3) questionable left ventricular function.
[2024-10-21 16:13] LABS: MRSA (PCR) NOT DETECTED (NOT DETECTE)
--- NOTE | 2024-10-21 17:26 | PC.NURSE ---
On behalf of Rebecca from care coordination, informed patient of Brilinta upfront deductible cost of $387 and that would cover her out of pocket expense for the medication for the rest of the year. Also discussed option of switching to plavix if cost was too high, however patient stated that she is okay with cost. Will leave a voicemail for care coordination to follow up in the AM.
[2024-10-21] MEDS: ATORVASTATIN 40 MG TABLET 80 MG PO (18:48)
[2024-10-21] MEDS: TICAGRELOR 90 MG TABLET PO (20:27)
[2024-10-22] VITALS (15 sets, daily range): BP systolic 104–132; BP diastolic 45–78; PULSE 55–83; RESP 13–18; TEMP 36.6–36.8; O2SAT 91–100
[2024-10-22 04:52] LABS: Basophils Absolute Auto 0.1 K/mm3 (0.0-0.1); Basophils Percent Auto 0.6 % (0.2-1.2); Eosinophils Absolute Auto 0.1 K/mm3 (0-0.3); Eosinophils Percent Auto 1.1 % (0-4.4); Hemoglobin 13.4 g/dL (12.0-15.0); Immature Granulocyte Absolute 0.02 K/mm3 (0.00-0.031); Immature Granulocyte Percent A 0.2 % (0-0.5); Lymphocytes Absolute Auto 2.63 K/mm3 (0.9-3.2); Lymphocytes Percent Auto 28.2 % (18.3-44.2); Mean Corpuscular HGB Conc 33.5 g/dl (32-36); Mean Corpuscular Hemoglobin 29.3 pg (26-34); Mean Corpuscular Volume 87.3 fl (80-100); Mean Platelet Volume 9.5 fl (7.4-10.4); Monocytes Absolute Auto 0.9 K/mm3 (0.1-0.6); Monocytes Percent Auto 9.7 % (2.6-8.5); Neutrophils Absolute Auto 5.6 K/mm3 (1.3-6.7); Neutrophils Percent Auto 60.2 % (45.5-73.1); Platelet Count Result 260 k/mm3 (150-375); Red Blood Count 4.58 M/mm3 (4.2-5.4); Red Cell Distribution Width 13.7 % (11.5-14.5); White Blood Count 9.3 K/mm3 (4.5-10.0)
[2024-10-22 05:04] LABS: Alanine Aminotransferase 35 U/L (6-35); Albumin Level 4.1 g/dL (3.5-5.1); Alkaline Phosphatase 67 U/L (38-126); Anion Gap 10 mmol/L (4-12); Aspartate Amino Transferase 83 U/L (14-36); Bilirubin,Total 0.6 mg/dL (0.2-1.3); Blood Urea Nitrogen 14 mg/dL (7-17); Calcium 9.2 mg/dL (8.4-10.2); Carbon Dioxide 23 mmol/L (22-30); Chloride 105 mmol/L (98-107); Estimated CRCL calculation 86 ml/min; Estimated Glomerular Filt Rate > 60; Glucose 104 mg/dL (65-110); Magnesium 2.1 mg/dL (1.6-2.3); Phosphorus 4.2 mg/dL (2.5-4.5); Potassium 3.6 mmol/L (3.4-5.0); Sodium 138 mmol/L (137-145)
[2024-10-22] MEDS: LEVOTHYROXINE SODIUM 50 MCG TABLET BY MOUTH (05:50)
--- NOTE | 2024-10-22 07:00 | ECG_ITS ---
Test Date: 2024-10-22 07:21:27 Measurements Intervals [employer] Rate: 64 P: 54 MO: 159 QRS: -33 QRSD: 93 T: -40 QT: 431 QTc: 446 Interpretive Statements SINUS RHYTHM LEFT AXIS DEVIATION [QRS AXIS < -30] MODERATE VOLTAGE CRITERIA FOR LVH, CONSIDER NORMAL VARIANT [MEETS CRITERIA IN ONE OF: R(aVL), S(V1), R(V5), R(V5/V6)+S(V1)] MODERATE T-WAVE ABNORMALITY, CONSIDER INFERIOR ISCHEMIA [-0.1+ mV T-WAVE IN II/aVF] ABNORMAL ECG Compared to ECG 10/21/2024 16:01:01 Left-axis deviation now present T-wave abnormality now present Possible ischemia now present Myocardial infarct finding no longer present Electronically Signed On 10-22-2024 08:12:56 CDT by Kareem Stack M.D.
[2024-10-22] MEDS: POTASSIUM CHLORIDE 20 MEQ ER TABLET 40 MEQ PO (08:27)
[2024-10-22] MEDS: ATORVASTATIN 40 MG TABLET 80 MG PO (08:27)
[2024-10-22] MEDS: ASPIRIN 81 MG ENTERIC TABLET PO (08:27)
[2024-10-22] MEDS: TICAGRELOR 90 MG TABLET PO ×2 (08:27→20:37)
[2024-10-22] MEDS: LORATADINE 10 MG TABLET PO (09:25)
--- NOTE | 2024-10-22 14:09 | WPDINTPN ---
Progress Note: A&P Assessment and Plan (1) STEMI (ST elevation myocardial infarction): Code(s): I21.3 - ST elevation (STEMI) myocardial infarction of unspecified site Status: Acute Assessment and Plan: 10/21: Patient presented with substernal chest pain which was associated with nausea, diaphoresis, shortness of breath, EMS called inferior STEMI in the field, optical laboratory manager was activated, patient was taken to cardiac optical laboratory manager where she was found to have 100% occlusion of the proximal RCA, status post HENRI x2 the proximal-mid RCA. Residual obstructive disease in the mid LAD and mid circumflex, plan for staged PCI at a later date by replenishment associate. -Cardiology following close -continue aspirin, atorvastatin, ticagrelor 10/21/24: Echocardiogram Summary 1. Left ventricular chamber dimension is normal. 2. Left ventricular systolic function is normal, estimated at 55-60. 3. There is moderately increased left ventricular wall thickness. 4. The left ventricular diastolic function is grade I diastolic dysfunction. 5. The inferior wall, basal inferolateral wall, and mid inferolateral wall are hypokinetic. 6. Left atrial chamber dimension is mildly enlarged. 7. There is moderate aortic valve sclerosis. 8. There is mild to moderate mitral valve regurgitation. 9. There is mild tricuspid valve regurgitation. 10. There is mild pulmonic regurgitation. (2) Dyslipidemia: Code(s): E78.5 - Hyperlipidemia, unspecified Status: Acute Assessment and Plan: Continue high-dose statin (3) Hypothyroid: Qualifiers: Hypothyroidism type: acquired Qualified Code(s): E03.9 - Hypothyroidism, unspecified Code(s): E03.9 - Hypothyroidism, unspecified Status: Acute Assessment and Plan: Will continue home levothyroxine Plan DVT prophylaxis: Status post STEMI Stress ulcer prophylaxis: None indicated Nutrition: Heart healthy diet Code Status: Full code Critical Care Time Spent: 31minutes Patient may move out of the ICU per Cardiology Due to a high probability of clinically significant, life threatening deterioration, the patient required my highest level of preparedness to intervene emergently and I personally spent this critical care time directly and personally managing the patient. This critical care time included obtaining a history; examining the patient; pulse oximetry; ordering and review of studies; arranging urgent treatment with development of a management plan; evaluation of patient's response to treatment; frequent reassessment; and discussions with other providers. It was exclusive of separately billable procedures and treating other patients and teaching time. Please see Assessment and Plan section and the rest of the note for further information on patient assessment and treatment This dictation may have been done utilizing a voice recognition system. Attempts have been made to correct errors. However, there may be uncorrected grammatical, spelling, and recognitions errors present. Subjective Date/time seen: 10/22/24 14:09 Interval history: Reason for consult: Acute inferior ST-elevation myocardial injury status post HENRI x2 the proximal-mid RCA. Residual obstructive disease in the mid LAD and mid circumflex 10/22/2024: Patient seen and examined the ICU, remains chest pain-free. Denies any shortness of breath, nausea, vomiting, diaphoresis. Feels better. Hemodynamically stable Review of Systems Review of Systems: All systems reviewed & are unremarkable except as noted in HPI and below Exam Narrative: General: Pleasant female in no acute distress HEENT: Pupils equal reactive was clear is clear, moist oral mucosa Neck: Supple Respiratory: Clear to auscultation bilateral, no wheeze Cardiac: S1-S2 normal, regular rate and rhythm, no murmurs Abdomen: Soft, nontender, nondistended, normoactive bowel sounds Extremities: palpable radial pulse on the right side, no edema on the lower extremities, palpable pedal pulses Neuro: Patient is awake, alert, oriented x3, nonfocal, able to answer questions appropriately and follows simple commands in all extremities Skin: Warm, dry and Intact, no lesions noted Psych: Anxious with normal mentation Objective Data Vital Signs Vital Signs: Vital Signs - 24 hr 10/21/24 14:27 10/21/24 14:57 10/21/24 15:35 Temperature Pulse Rate 71 76 Pulse Rate [Right Radial] 72 90 Respiratory Rate 20 18 Blood Pressure 162/79 H Pulse Oximetry 100 99 Oxygen Delivery 10/21/24 15:45 10/21/24 16:00 10/21/24 16:00 Temperature 98.3 F Pulse Rate 79 82 Pulse Rate [Right Radial] 86 Respiratory Rate 22 H Blood Pressure 145/66 H Pulse Oximetry 98 Oxygen Delivery 10/21/24 16:00 10/21/24 16:30 10/21/24 16:57 Temperature Pulse Rate 80 Pulse Rate [Right Radial] 82 Respiratory Rate 16 Blood Pressure 132/56 L Pulse Oximetry 99 Oxygen Delivery Room Air 10/21/24 18:00 10/21/24 18:00 10/21/24 18:57 Temperature Pulse Rate 104 H 102 H 85 Pulse Rate [Right Radial] 85 Respiratory Rate 16 22 H Blood Pressure 123/54 L 118/61 Pulse Oximetry 99 98 Oxygen Delivery 10/21/24 20:00 10/21/24 20:00 10/21/24 20:00 Temperature 98.1 F Pulse Rate 80 78 Pulse Rate [Right Radial] Respiratory Rate 19 Blood Pressure 128/69 Pulse Oximetry 97 Oxygen Delivery Room Air 10/21/24 22:00 10/21/24 22:00 10/22/24 00:00 Temperature Pulse Rate 75 75 Pulse Rate [Right Radial] Respiratory Rate 18 Blood Pressure 112/53 L Pulse Oximetry 97 Oxygen Delivery Room Air 10/22/24 00:00 10/22/24 00:00 10/22/24 02:00 Temperature 98.3 F Pulse Rate 71 67 68 Pulse Rate [Right Radial] Respiratory Rate 17 Blood Pressure 104/76 Pulse Oximetry 99 Oxygen Delivery 10/22/24 02:00 10/22/24 04:00 10/22/24 04:00 Temperature 98.1 F Pulse Rate 68 55 L Pulse Rate [Right Radial] Respiratory Rate 18 13 Blood Pressure 118/55 L 123/78 Pulse Oximetry 97 97 Oxygen Delivery Room Air 10/22/24 06:00 10/22/24 08:00 10/22/24 08:00 Temperature 98.2 F Pulse Rate 75 74 68 Pulse Rate [Right Radial] Respiratory Rate 18 18 Blood Pressure 120/49 L 117/53 L Pulse Oximetry 98 96 Oxygen Delivery 10/22/24 08:00 10/22/24 10:00 10/22/24 10:00 Temperature Pulse Rate 71 71 Pulse Rate [Right Radial] Respiratory Rate 18 Blood Pressure 129/68 Pulse Oximetry 98 Oxygen Delivery Room Air 10/22/24 11:45 10/22/24 12:00 10/22/24 12:00 Temperature 98.0 F Pulse Rate 73 76 Pulse Rate [Right Radial] Respiratory Rate 18 Blood Pressure 122/45 L Pulse Oximetry 100 Oxygen Delivery Room Air Intake/Output Intake/Output: Intake & Output 10/19/24 10/20/24 10/21/24 10/22/24 23:59 23:59 23:59 23:59 Intake Total 360 830 Output Total 1100 Balance 360 -270 Meds/Results Medications: Active Medications Generic Name Dose Route Start Last Admin Trade Name Anatoliy PRN Reason Stop Dose Admin Aspirin 81 mg 10/22/24 09:00 10/22/24 08:27 Aspirin 81 Mg Enteric Tablet PO 81 mg QAM RU Administration Atorvastatin Calcium 80 mg 10/21/24 13:15 10/22/24 08:27 Atorvastatin 40 Mg Tablet PO 80 mg DAILY RU Administration Levothyroxine Sodium 50 mcg 10/22/24 06:30 10/22/24 05:50 Levothyroxine Sodium 50 Mcg Tablet BY MOUTH 50 mcg DAILY@0630 RU Administration Loratadine 10 mg 10/22/24 09:20 10/22/24 09:25 Loratadine 10 Mg Tablet PO 10 mg DAILY RU Administration Ticagrelor 90 mg 10/21/24 21:00 10/22/24 08:27 Ticagrelor 90 Mg Tablet PO 90 mg Q12HR RU Administration Labs Labs: Laboratory Results - last 24 hr 10/21/24 10/21/24 10/21/24 11:45 14:58 15:28 WBC RBC Hgb Hct MCV MCH MCHC RDW Plt Count MPV Immature Gran % (Auto) Neut % (Auto) Lymph % (Auto) [place] % (Auto) Eos % (Auto) Baso % (Auto) Lymph # (Auto) [place] # (Auto) Eos # (Auto) Baso # (Auto) Abs Immat Gran (auto) Absolute Neuts (auto) Absolute Nucleated RBC Nucleated RBC % Sodium Potassium Chloride Carbon Dioxide Anion Gap BUN Creatinine Estim Creat Clear Calc Estimated GFR Glucose Hemoglobin A1c 5.4 Calcium Phosphorus Magnesium Total Bilirubin AST ALT Alkaline Phosphatase Troponin I 7.480 H* D Total Protein Albumin Nasal MRSA (PCR) Not detected 10/21/24 10/22/24 10/22/24 17:47 04:32 04:33 WBC 9.3 RBC 4.58 Hgb 13.4 Hct 40.0 MCV 87.3 MCH 29.3 MCHC 33.5 RDW 13.7 Plt Count 260 MPV 9.5 Immature Gran % (Auto) 0.2 Neut % (Auto) 60.2 Lymph % (Auto) 28.2 [place] % (Auto) 9.7 H Eos % (Auto) 1.1 Baso % (Auto) 0.6 Lymph # (Auto) 2.63 [place] # (Auto) 0.9 H Eos # (Auto) 0.1 Baso # (Auto) 0.1 Abs Immat Gran (auto) 0.02 Absolute Neuts (auto) 5.6 Absolute Nucleated RBC 0.000 Nucleated RBC % 0.0 Sodium 138 Potassium 3.6 Chloride 105 Carbon Dioxide 23 Anion Gap 10 BUN 14 Creatinine 0.57 L Estim Creat Clear Calc 86 Estimated GFR > 60 Glucose 104 Hemoglobin A1c Calcium 9.2 Phosphorus 4.2 Magnesium 2.1 Total Bilirubin 0.6 AST 83 H ALT 35 Alkaline Phosphatase 67 Troponin I 11.100 H* D Total Protein 7.0 Albumin 4.1 Nasal MRSA (PCR) Quality VTE Prophylaxis VTE prophylaxis: mechanical ordered
--- NOTE | 2024-10-22 14:15 | P.PNCA_ITS ---
Progress Note: A&P Assessment and Plan (1) STEMI (ST elevation myocardial infarction): Code(s): I21.3 - ST elevation (STEMI) myocardial infarction of unspecified site Status: Acute Assessment and Plan: PCI to the RCA as detailed in catheterization report. Does have residual disease in the LCX as well as LAD. These will need to be intervened upon in a staged fashion as an outpatient. She can transfer to the IMU. Continue aspirin and Brilinta. Continue statin. Will add low-dose metoprolol today at 12.5 mg p.o. b.i.d. and likely DC home tomorrow (2) Mitral valve prolapse: Code(s): I34.1 - Nonrheumatic mitral (valve) prolapse Status: Acute Assessment and Plan: No significant MR (3) Dyslipidemia: Code(s): E78.5 - Hyperlipidemia, unspecified Status: Acute Assessment and Plan: Continue home Atorvastatin 80mg once daily. And likely will add a PCSK9 inhibitor as an outpatient (4) Hypokalemia: Code(s): E87.6 - Hypokalemia Status: Acute Assessment and Plan: KCL 40 mEq p.o. x1 Subjective Date/time seen: 10/22/24 14:15 Interval history: Reason for admission Acute inferior ST-elevation myocardial injury status post HENRI x2 the proximal-mid RCA. Residual obstructive disease in the mid LAD and mid circumflex Date of service 10/22/2024: No chest pain, shortness of breath. Feels well Review of Systems Review of Systems: All systems reviewed & are unremarkable except as noted in HPI and below Constitutional: Constitutional: Denies body ache(s) Eyes: Eyes: Denies blurry vision ENT: Reports Normal hearing present Cardiovascular: Cardiovascular: Denies chest pain Respiratory: Respiratory: Denies hemoptysis Gastrointestinal: Gastrointestinal: Denies abdominal pain Genitourinary: Genitourinary: Denies hematuria Musculoskeletal: Musculoskeletal: Denies back pain Integumentary/Breasts: Skin/Breast: Denies dry skin Neurologic: Denies Abnormal speech present Psychiatric: Psychiatric: Denies anxiety Endocrine: Endocrine: Denies change in body appearance Hematologic/Lymphatic: Hematologic/Lymphatic: Denies easy bleeding Allergic/Immunologic: Allergic/Immunologic: Denies GI upset with certain foods Exam Narrative: Appears stated age Const: General: comfortable and no acute distress HENMT: Face/Nose/Sinus: Normal nares present Mouth: Yes moist mucous membranes Eyes: General: appearance normal, both eyes and all related structures Sclera: sclerae normal Neck: Neck: supple and no JVD Resp: Effort & Inspection: normal respiratory effort Cardio: Rate: regular rate Rhythm: regular rhythm GI: Inspection: non-distended GI Palp: Yes Soft to palpation Skin: General skin exam: normal color Neuro: Speech: normal speech Extrem: General: normal to inspection Other: Right wrist has some bruising/ecchymosis but hematoma Psych: Mental Status: mental status grossly normal Affect: normal affect Objective Data Vital Signs Vital Signs: Vital Signs - 24 hr 10/21/24 14:27 10/21/24 14:57 10/21/24 15:35 Temperature Pulse Rate 71 76 Pulse Rate [Right Radial] 72 90 Respiratory Rate 20 18 Blood Pressure 162/79 H Pulse Oximetry 100 99 Oxygen Delivery 10/21/24 15:45 10/21/24 16:00 10/21/24 16:00 Temperature 36.8 C Pulse Rate 79 82 Pulse Rate [Right Radial] 86 Respiratory Rate 22 H Blood Pressure 145/66 H Pulse Oximetry 98 Oxygen Delivery 10/21/24 16:00 10/21/24 16:30 10/21/24 16:57 Temperature Pulse Rate 80 Pulse Rate [Right Radial] 82 Respiratory Rate 16 Blood Pressure 132/56 L Pulse Oximetry 99 Oxygen Delivery Room Air 10/21/24 18:00 10/21/24 18:00 10/21/24 18:57 Temperature Pulse Rate 104 H 102 H 85 Pulse Rate [Right Radial] 85 Respiratory Rate 16 22 H Blood Pressure 123/54 L 118/61 Pulse Oximetry 99 98 Oxygen Delivery 10/21/24 20:00 10/21/24 20:00 10/21/24 20:00 Temperature 36.7 C Pulse Rate 80 78 Pulse Rate [Right Radial] Respiratory Rate 19 Blood Pressure 128/69 Pulse Oximetry 97 Oxygen Delivery Room Air 10/21/24 22:00 10/21/24 22:00 10/22/24 00:00 Temperature Pulse Rate 75 75 Pulse Rate [Right Radial] Respiratory Rate 18 Blood Pressure 112/53 L Pulse Oximetry 97 Oxygen Delivery Room Air 10/22/24 00:00 10/22/24 00:00 10/22/24 02:00 Temperature 36.8 C Pulse Rate 71 67 68 Pulse Rate [Right Radial] Respiratory Rate 17 Blood Pressure 104/76 Pulse Oximetry 99 Oxygen Delivery 10/22/24 02:00 10/22/24 04:00 10/22/24 04:00 Temperature 36.7 C Pulse Rate 68 55 L Pulse Rate [Right Radial] Respiratory Rate 18 13 Blood Pressure 118/55 L 123/78 Pulse Oximetry 97 97 Oxygen Delivery Room Air 10/22/24 06:00 10/22/24 08:00 10/22/24 08:00 Temperature 36.8 C Pulse Rate 75 74 68 Pulse Rate [Right Radial] Respiratory Rate 18 18 Blood Pressure 120/49 L 117/53 L Pulse Oximetry 98 96 Oxygen Delivery 10/22/24 08:00 10/22/24 10:00 10/22/24 10:00 Temperature Pulse Rate 71 71 Pulse Rate [Right Radial] Respiratory Rate 18 Blood Pressure 129/68 Pulse Oximetry 98 Oxygen Delivery Room Air 10/22/24 11:45 10/22/24 12:00 10/22/24 12:00 Temperature 36.7 C Pulse Rate 73 76 Pulse Rate [Right Radial] Respiratory Rate 18 Blood Pressure 122/45 L Pulse Oximetry 100 Oxygen Delivery Room Air Intake/Output Intake/Output: Intake & Output 10/19/24 10/20/24 10/21/24 10/22/24 23:59 23:59 23:59 23:59 Intake Total 360 830 Output Total 1100 Balance 360 -270 Meds/Results Medications: Active Medications Generic Name Dose Route Start Last Admin Trade Name Freq PRN Reason Stop Dose Admin Aspirin 81 mg 10/22/24 09:00 10/22/24 08:27 Aspirin 81 Mg Enteric Tablet PO 81 mg QAM RU Administration Atorvastatin Calcium 80 mg 10/21/24 13:15 10/22/24 08:27 Atorvastatin 40 Mg Tablet PO 80 mg DAILY RU Administration Levothyroxine Sodium 50 mcg 10/22/24 06:30 10/22/24 05:50 Levothyroxine Sodium 50 Mcg Tablet BY MOUTH 50 mcg DAILY@0630 RU Administration Loratadine 10 mg 10/22/24 09:20 10/22/24 09:25 Loratadine 10 Mg Tablet PO 10 mg DAILY RU Administration Ticagrelor 90 mg 10/21/24 21:00 10/22/24 08:27 Ticagrelor 90 Mg Tablet PO 90 mg Q12HR RU Administration Labs Labs: Laboratory Results - last 24 hr 10/21/24 10/21/24 10/21/24 11:45 14:58 15:28 WBC RBC Hgb Hct MCV MCH MCHC RDW Plt Count MPV Immature Gran % (Auto) Neut % (Auto) Lymph % (Auto) [place] % (Auto) Eos % (Auto) Baso % (Auto) Lymph # (Auto) [place] # (Auto) Eos # (Auto) Baso # (Auto) Abs Immat Gran (auto) Absolute Neuts (auto) Absolute Nucleated RBC Nucleated RBC % Sodium Potassium Chloride Carbon Dioxide Anion Gap BUN Creatinine Estim Creat Clear Calc Estimated GFR Glucose Hemoglobin A1c 5.4 Calcium Phosphorus Magnesium Total Bilirubin AST ALT Alkaline Phosphatase Troponin I 7.480 H* D Total Protein Albumin Nasal MRSA (PCR) Not detected 10/21/24 10/22/24 10/22/24 17:47 04:32 04:33 WBC 9.3 RBC 4.58 Hgb 13.4 Hct 40.0 MCV 87.3 MCH 29.3 MCHC 33.5 RDW 13.7 Plt Count 260 MPV 9.5 Immature Gran % (Auto) 0.2 Neut % (Auto) 60.2 Lymph % (Auto) 28.2 [place] % (Auto) 9.7 H Eos % (Auto) 1.1 Baso % (Auto) 0.6 Lymph # (Auto) 2.63 [place] # (Auto) 0.9 H Eos # (Auto) 0.1 Baso # (Auto) 0.1 Abs Immat Gran (auto) 0.02 Absolute Neuts (auto) 5.6 Absolute Nucleated RBC 0.000 Nucleated RBC % 0.0 Sodium 138 Potassium 3.6 Chloride 105 Carbon Dioxide 23 Anion Gap 10 BUN 14 Creatinine 0.57 L Estim Creat Clear Calc 86 Estimated GFR > 60 Glucose 104 Hemoglobin A1c Calcium 9.2 Phosphorus 4.2 Magnesium 2.1 Total Bilirubin 0.6 AST 83 H ALT 35 Alkaline Phosphatase 67 Troponin I 11.100 H* D Total Protein 7.0 Albumin 4.1 Nasal MRSA (PCR) Catheterization 1. Left main: The left main coronary artery is widely patent without any significant obstructive disease. The left main is short. 2. Left anterior descending: The mid portion of the LAD has a mild-moderate stenosis followed by a 70% stenosis. 3. Left circumflex: The mid portion of the LCX has an 80% stenosis followed by a tandem 99% stenosis. 4. Right coronary artery: The RCA is the dominant vessel. The RCA is 100% occluded in the proximal portion. There are [id number] collaterals filling the distal RCA branches. Status post HENRI x2 ECHO: 1. Left ventricular chamber dimension is normal. 2. Left ventricular systolic function is normal, estimated at 55-60. 3. There is moderately increased left ventricular wall thickness. 4. The left ventricular diastolic function is grade I diastolic dysfunction. 5. The inferior wall, basal inferolateral wall, and mid inferolateral wall are hypokinetic. 6. Left atrial chamber dimension is mildly enlarged. 7. There is moderate aortic valve sclerosis. 8. There is mild to moderate mitral valve regurgitation. 9. There is mild tricuspid valve regurgitation. 10. There is mild pulmonic regurgitation.
--- NOTE | 2024-10-22 17:15 | PC.NURSE ---
This patient, Maribel Hankins, was transferred to [[id number]] on 10/22/24 at 1715. Personal belongings sent with patient. Report given to [Elma DRAKE]. Appropriate documentation sent with patient.
--- NOTE | 2024-10-22 19:28 | PC.NURSE ---
This patient, Maribel Hankins, was received from ICU 2 on 10/22/24 at 1719. Patient/family oriented to unit policies and routines. Pt assessed. No complaints or concerns at this time. bed in low and locked position. Call light in reach. Will continue to monitor. Maura Blake RN
[2024-10-22] MEDS: METOPROLOL TARTRATE 12.5 MG TABLET PO (20:33)
[2024-10-23] VITALS (10 sets, daily range): BP systolic 101–121; BP diastolic 52–76; PULSE 61–96; RESP 18–20; TEMP 36.4–37.2; O2SAT 95–99
[2024-10-23] MEDS: LEVOTHYROXINE SODIUM 50 MCG TABLET BY MOUTH (06:05)
[2024-10-23] MEDS: METOPROLOL TARTRATE 12.5 MG TABLET PO (09:21)
[2024-10-23] MEDS: ASPIRIN 81 MG ENTERIC TABLET PO (09:21)
[2024-10-23] MEDS: ATORVASTATIN 40 MG TABLET 80 MG PO (09:22)
[2024-10-23] MEDS: TICAGRELOR 90 MG TABLET PO (09:23)
[2024-10-23] MEDS: LORATADINE 10 MG TABLET PO (09:23)
--- NOTE | 2024-10-23 12:02 | P.PNCA_ITS ---
Progress Note: A&P Assessment and Plan (1) STEMI (ST elevation myocardial infarction): Code(s): I21.3 - ST elevation (STEMI) myocardial infarction of unspecified site Status: Acute Assessment and Plan: PCI to the RCA as detailed in catheterization report. Does have residual disease in the LCX as well as LAD. These will need to be intervened upon in a staged fashion as an outpatient. She can transfer to the IMU. Continue aspirin and Brilinta. Continue statin. Tolerating tiny dose metoprolol (2) Mitral valve prolapse: Code(s): I34.1 - Nonrheumatic mitral (valve) prolapse Status: Acute Assessment and Plan: No significant MR (3) Dyslipidemia: Code(s): E78.5 - Hyperlipidemia, unspecified Status: Acute Assessment and Plan: Continue home Atorvastatin 80mg once daily. And likely will add a PCSK9 inhibitor as an outpatient (4) Hypokalemia: Code(s): E87.6 - Hypokalemia Status: Acute Subjective Date/time seen: 10/23/24 12:02 Interval history: Reason for admission Acute inferior ST-elevation myocardial injury status post HENRI x2 the proximal-mid RCA. Residual obstructive disease in the mid LAD and mid circumflex Date of service 10/22/2024: No chest pain, shortness of breath. Feels well Date of service 10/23/2024: Feels well. No chest pain shortness of breath. Rate for discharge Review of Systems Review of Systems: All systems reviewed & are unremarkable except as noted in HPI and below Constitutional: Constitutional: Denies body ache(s) Eyes: Eyes: Denies blurry vision ENT: Reports Normal hearing present Cardiovascular: Cardiovascular: Denies chest pain Respiratory: Respiratory: Denies hemoptysis Gastrointestinal: Gastrointestinal: Denies abdominal pain Genitourinary: Genitourinary: Denies hematuria Musculoskeletal: Musculoskeletal: Denies back pain Integumentary/Breasts: Skin/Breast: Denies dry skin Neurologic: Reports Normal hearing present and Denies Abnormal speech present Psychiatric: Psychiatric: Denies anxiety Endocrine: Endocrine: Denies change in body appearance Hematologic/Lymphatic: Hematologic/Lymphatic: Denies easy bleeding Allergic/Immunologic: Allergic/Immunologic: Denies GI upset with certain foods Exam Narrative: Appears stated age Const: General: comfortable, no acute distress and uncomfortable HENMT: Face/Nose/Sinus: Normal nares present Mouth: Yes moist mucous membranes Eyes: General: appearance normal, both eyes and all related structures Sc alex: sclerae normal Neck: Neck: supple and no JVD Resp: Effort & Inspection: normal respiratory effort Cardio: Rate: regular rate Rhythm: regular rhythm GI: Inspection: non-distended Skin: General skin exam: normal color Neuro: Cranial nerves: Yes Normal hearing present Speech: normal speech and No Abnormal speech present Extrem: General: normal to inspection Other: Right wrist has some bruising/ecchymosis but hematoma Psych: Mental Status: mental status grossly normal Affect: normal affect Objective Data Vital Signs Vital Signs: Vital Signs - 24 hr 10/22/24 14:00 10/22/24 15:50 10/22/24 16:00 Temperature Pulse Rate 74 74 Respiratory Rate Blood Pressure Pulse Oximetry Oxygen Delivery Room Air 10/22/24 16:00 10/22/24 18:00 10/22/24 20:00 Temperature 36.7 C 36.7 C Pulse Rate 80 83 80 Respiratory Rate 18 18 Blood Pressure 132/64 132/64 Pulse Oximetry 100 100 Oxygen Delivery 10/22/24 20:30 10/22/24 20:33 10/22/24 22:00 Temperature Pulse Rate 63 74 63 Respiratory Rate Blood Pressure Pulse Oximetry Oxygen Delivery 10/22/24 23:31 10/23/24 00:00 10/23/24 02:00 Temperature 36.6 C Pulse Rate 65 61 61 Respiratory Rate 18 Blood Pressure 112/48 L Pulse Oximetry 91 Oxygen Delivery 10/23/24 03:38 10/23/24 04:00 10/23/24 06:00 Temperature 36.4 C Pulse Rate 69 61 66 Respiratory Rate 18 Blood Pressure 101/52 L Pulse Oximetry 98 Oxygen Delivery 10/23/24 07:56 10/23/24 09:21 Temperature 36.6 C Pulse Rate 75 72 Respiratory Rate 20 Blood Pressure 115/76 Pulse Oximetry 95 Oxygen Delivery Intake/Output Intake/Output: Intake & Output 10/20/24 10/21/24 10/22/24 10/23/24 23:59 23:59 23:59 23:59 Intake Total 360 1370 240 Output Total 2700 Balance 360 -1330 240 Meds/Results Medications: Active Medications Generic Name Dose Route Start Last Admin Trade Name Freq PRN Reason Stop Dose Admin Aspirin 81 mg 10/22/24 09:00 10/23/24 09:21 Aspirin 81 Mg Enteric Tablet PO 81 mg QAM RU Administration Atorvastatin Calcium 80 mg 10/21/24 13:15 10/23/24 09:22 Atorvastatin 40 Mg Tablet PO 80 mg DAILY RU Administration Levothyroxine Sodium 50 mcg 10/22/24 06:30 10/23/24 06:05 Levothyroxine Sodium 50 Mcg Tablet BY MOUTH 50 mcg DAILY@0630 RU Administration Loratadine 10 mg 10/22/24 09:20 10/23/24 09:23 Loratadine 10 Mg Tablet PO 10 mg DAILY RU Administration Metoprolol Tartrate 12.5 mg 10/22/24 14:25 10/23/24 09:21 Metoprolol Tartrate 12.5 Mg Tablet PO 12.5 mg Q12HR RU Administration Ticagrelor 90 mg 10/21/24 21:00 10/23/24 09:23 Ticagrelor 90 Mg Tablet PO 90 mg Q12HR RU Administration
--- NOTE | 2024-10-23 12:04 | P.DS_ITS ---
DS: Admitting Diagnosis Discharge Date 10/23/2024 Admitting Diagnosis STEMI DS: Discharge Diagnosis Discharge Diagnosis (1) STEMI (ST elevation myocardial infarction): Code(s): I21.3 - ST elevation (STEMI) myocardial infarction of unspecified site Status: Acute Assessment and Plan: Status post PCI to the RCA with residual disease needing staged PCI: Feels well. Continue aspirin, Brilinta, low-dose metoprolol, atorvastatin and p.r.n. nitroglycerin. (2) Dyslipidemia: Code(s): E78.5 - Hyperlipidemia, unspecified Status: Acute Assessment and Plan: Continue atorvastatin. Like the had a PCSK9 inhibitor as an outpatient (3) Hypothyroid: Qualifiers: Hypothyroidism type: acquired Qualified Code(s): E03.9 - Hypothyroidism, unspecified Code(s): E03.9 - Hypothyroidism, unspecified Status: Acute Assessment and Plan: Continue levothyroxine (4) Vitamin D deficiency: Code(s): E55.9 - Vitamin D deficiency, unspecified Status: Acute (5) Anxiety: Code(s): F41.9 - Anxiety disorder, unspecified Status: Acute DS: Summary Hospital Course Reason for hospitalization: ST-elevation myocardial infarction Hospital Course: Maribel is a 68 year old female with hyperlipidemia, hypothyroidism, mitral valve prolapse who presented to [facility] as an EMS STEMI alert. Began having chest pain 1.5 hours prior to presentation. EKG here confirms inferior STEMI. high density press laborer activated. Acute 100% occlusion of the proximal RCA (infarct-related artery) s/p PCI with HENRI x 2 in the proximal-mid RCA. Residual obstructive disease in the mid LAD and mid LCX. Will plan for staged PCI at a later date. See catheterization report for complete details She remained in the ICU on the 1st night and then transferred to the IMU on night 2. She felt well. Denied any further chest pain, shortness of breath. Right wrist with some mild ecchymosis but no hematoma. Echocardiogram 1. Left ventricular chamber dimension is normal. 2. Left ventricular systolic function is normal, estimated at 55-60. 3. There is moderately increased left ventricular wall thickness. 4. The left ventricular diastolic function is grade I diastolic dysfunction. 5. The inferior wall, basal inferolateral wall, and mid inferolateral wall are hypokinetic. 6. Left atrial chamber dimension is mildly enlarged. 7. There is moderate aortic valve sclerosis. 8. There is mild to moderate mitral valve regurgitation. 9. There is mild tricuspid valve regurgitation. 10. There is mild pulmonic regurgitation. Given residual disease and borderline elevated blood pressure, add low-dose metoprolol 12.5 mg p.o. b.i.d.. She tolerated well. No significant bradycardia. Discharge home Status at Discharge Functional status at discharge: independent ambulation Overall status at discharge: patient is progressing back to baseline Time Spent with Patient Time attestation: Total time spent providing and/or coordinating discharge services: Greater than 30 minutes (35 minutes) Exam Narrative: Appears stated age Const: General: comfortable and no acute distress HENMT: Ears: TM's normal bilaterally Face/Nose/Sinus: Normal nares present Eyes: General: appearance normal, both eyes and all related structures Sclera: sclerae normal Neck: Neck: supple and no JVD Resp: Effort & Inspection: normal respiratory effort Auscultation: clear to auscultation bilaterally Cardio: Rate: regular rate Rhythm: regular rhythm Heart sounds: no murmurs GI: Inspection: non-distended GI Palp: Yes Soft to palpation Skin: General skin exam: normal color Other: Mild bruising noted around right wrist but no hematoma Neuro: Motor exam (neuro): 5/5 motor strength present throughout Sensory Exam: normal sensation Extrem: General: normal to inspection Psych: Mental Status: mental status grossly normal Affect: normal affect DS: Data Data Completed and Pending Completed studies during hospitalization: Echocardiogram 1. Left ventricular chamber dimension is normal. 2. Left ventricular systolic function is normal, estimated at 55-60. 3. There is moderately increased left ventricular wall thickness. 4. The left ventricular diastolic function is grade I diastolic dysfunction. 5. The inferior wall, basal inferolateral wall, and mid inferolateral wall are hypokinetic. 6. Left atrial chamber dimension is mildly enlarged. 7. There is moderate aortic valve sclerosis. 8. There is mild to moderate mitral valve regurgitation. 9. There is mild tricuspid valve regurgitation. 10. There is mild pulmonic regurgitation. Catheterization Findings: LEFT HEART CATHETERIZATION FINDINGS: 1. Left main: The left main coronary artery is widely patent without any significant obstructive disease. The left main is short. 2. Left anterior descending: The mid portion of the LAD has a mild-moderate stenosis followed by a 70% stenosis. 3. Left circumflex: The mid portion of the LCX has an 80% stenosis followed by a tandem 99% stenosis. 4. Right coronary artery: The RCA is the dominant vessel. The RCA is 100% occluded in the proximal portion. There are [id number] collaterals filling the distal RCA branches. Description of Procedure and PCI: Informed consent signed and placed in the chart. Patient transferred to medical laboratory specialist room. Prepped and draped in usual sterile fashion. 2% lidocaine injected subcutaneously in right wrist area. 22-gauge venipuncture catheter used to access the right radial artery under ultrasound guidance. 6-FR slender sheath placed in right radial artery. Nitroglycerine and Verapamil were given intraarterial through the sheath. Versacore wire advanced under fluoroscopy 5F Ultra 4 diagnostic catheter engaged Left Main Coronary Artery. 5F Ultra 4 diagnostic catheter engaged Right Coronary Artery Multiple orthogonal angiogram obtained and reviewed Angiomax was used for anticoagulation. 6F FR 4 guide catheter was used to intubate the RCA. 0.014 [place] coronary wire was passed in to the distal RCA. The lesion was pre-dilated with a 2.5mm x 15mm balloon inflated to high YANET. IVUS catheter advanced distal to the lesion and reference measurements obtained. A 5.0 mm x 18mm Cisco HENRI was successfully deployed into mid RCA. Intracoronary NTG was administered. There was some haziness at the proximal stent edge, concerning for possible dissection. Attempted to advance a 5.0mm x 15mm [place] HENRI to deploy in the proximal RCA to cover the dissection, however, unable to cross the stent across the bend to overlap with the previously deployed stent. Stent not deployed, removed. A 6F Guideliner was advanced over a 2.5mm balloon. Guideliner advanced to the proximal RCA. We were then able to advance a 4.5mm x 18mm Cisco HENRI into the proximal RCA, placed overlapping to the mid RCA stent. The 4.5mm stent was successfully deployed. Follow-up angiograms showed a good result Coronary wire and guide-catheter were removed Pre-procedure - RUBY 0 flow Post-procedure - RUBY 3 flow No angiographic complications identified. Attempted to cross a 5F Pigtail diagnostic catheter across aortic valve to obtain LVEDP, but unable to cross the catheter from right radial artery access. Hemostasis was achieved by application of TR band. Disposition: ICU Plan: Admit to ICU. DAPT for 1 year followed by ASA indefinitely. High intensity statin. Will plan for staged PCI on nonculprit-lesions as an outpatient. Continue aggressive medical therapy and risk factor modification. Procedures/Treatments: Catheterization as above Findings: LEFT HEART CATHETERIZATION FINDINGS: 1. Left main: The left main coronary artery is widely patent without any significant obstructive disease. The left main is short. 2. Left anterior descending: The mid portion of the LAD has a mild-moderate stenosis followed by a 70% stenosis. 3. Left circumflex: The mid portion of the LCX has an 80% stenosis followed by a tandem 99% stenosis. 4. Right coronary artery: The RCA is the dominant vessel. The RCA is 100% occluded in the proximal portion. There are [id number] collaterals filling the distal RCA branches. Description of Procedure and PCI: Informed consent signed and placed in the chart. Patient transferred to medical laboratory specialist room. Prepped and draped in usual sterile fashion. 2% lidocaine injected subcutaneously in right wrist area. 22-gauge venipuncture catheter used to access the right radial artery under ultrasound guidance. 6-FR slender sheath placed in right radial artery. Nitroglycerine and Verapamil were given intraarterial through the sheath. Versacore wire advanced under fluoroscopy 5F Ultra 4 diagnostic catheter engaged Left Main Coronary Artery. 5F Ultra 4 diagnostic catheter engaged Right Coronary Artery Multiple orthogonal angiogram obtained and reviewed Angiomax was used for anticoagulation. 6F FR 4 guide catheter was used to intubate the RCA. 0.014 [place] coronary wire was passed in to the distal RCA. The lesion was pre-dilated with a 2.5mm x 15mm balloon inflated to high YANET. IVUS catheter advanced distal to the lesion and reference measurements obtained. A 5.0 mm x 18mm [place] HENRI was successfully deployed into mid RCA. Intracoronary NTG was administered. There was some haziness at the proximal stent edge, concerning for possible dissection. Attempted to advance a 5.0mm x 15mm [place] HENRI to deploy in the proximal RCA to cover the dissection, however, unable to cross the stent across the bend to overlap with the previously deployed stent. Stent not deployed, removed. A 6F Guideliner was advanced over a 2.5mm balloon. Guideliner advanced to the proximal RCA. We were then able to advance a 4.5mm x 18mm [place] HENRI into the proximal RCA, placed overlapping to the mid RCA stent. The 4.5mm stent was successfully deployed. Follow-up angiograms showed a good result Coronary wire and guide-catheter were removed Pre-procedure - RUBY 0 flow Post-procedure - RUBY 3 flow No angiographic complications identified. Attempted to cross a 5F Pigtail diagnostic catheter across aortic valve to obtain LVEDP, but unable to cross the catheter from right radial artery access. Hemostasis was achieved by application of TR band. Disposition: ICU Plan: Admit to ICU. DAPT for 1 year followed by ASA indefinitely. High intensity statin. Will plan for staged PCI on nonculprit-lesions as an outpatient. Continue aggressive medical therapy and risk factor modification. Imaging My impression: Echocardiogram as above Discharge Plan Discharge Attending physician on discharge: Mona Duran Consulting providers: Vj Del Valle Discharging Clinician: Kareem Stack Anticipated Discharge Date/Time: 10/23/24 12:14 Patient Disposition: Home Activity: may shower and no straining Diet: heart healthy and low fat Wound Care Instructions: follow printed instructions Discharge Instructions: [facility] [address] [place] [address] DISCHARGE INSTRUCTIONS - POST PCI Activity 1. No driving until x 48 hours. 2. No lifting, pushing or pulling more than 10 pounds for 1 week. 3. No strenuous exercise or activity (including sexual activity) until you are released to do so. 4. May shower but no tub baths or swimming pool for 1 week. Avoid hot tubs. Medications DO NOT STOP YOUR MEDICATIONS ONLY YOUR EQUIPMENT OPERATOR INTERMODAL YARD CAN STOP THE FOLLOWING MEDICATIONS - PLEASE CALL THE OFFICE WITH QUESTIONS. *Aspirin *Ticagrelor (Brilinta) *Atorvastatin *Lisinopril or ARB *Metoprolol tartrate or succinate *Clopidogrel (Plavix) *Prasugrel (Effient) Important Reminders 1. Keep your stent card in your wallet at all times 2. Follow a heart healthy diet paying extra attention to cholesterol and fats. 3. Stay hydrated. 4. If you have chest pain unrelieved by rest or nitroglycerin (if prescribed) call 911 immediately. 5. If you miss one dose of Brilinta (if prescribed) take a tablet at the next time due. If you miss 2 doses take a tablet when you remember and resume at the next time due. *For any other questions please call the office at [phone]. Office hours are 8AM 4:30PM Thursday through Thursday. Patient Instructions: Antibiotic Form, Metoprolol (By mouth), Aspirin (By mouth), Atorvastatin (By mouth), Ticagrelor (By mouth), Heart Healthy Diet (DC), Acute Coronary Syndrome (DC) Patient Language: Romanian Stand Alone Forms: General Discharge Information Follow-up/Referrals: Kareem Stack MD [Physician] - Discharge Medications: New ticagrelor [Brilinta] 90 mg Tablet 90 mg PO Q12HR Qty: 180 3RF aspirin 81 mg Tablet,Delayed Release (Dr/Ec) 81 mg PO QAM Qty: 30 11RF metoprolol tartrate 25 mg tablet 12.5 mg PO BID Qty: 30 11RF nitroglycerin [Nitrostat] 0.4 mg Tablet, Sublingual 0.4 mg sublingual Q5MIN PRN (Reason: Chest Pain) Qty: 50 0RF metoprolol tartrate 25 mg tablet 12.5 mg PO BID Qty: 30 11RF Continued epinephrine [EpiPen 2-Bryan] 0.3 mg/0.3 mL auto-injector 0.3 mg IM ONCE Qty: 2 0RF Rx Instructions: as a single dose; may repeat once loratadine [Claritin] 10 mg tablet 10 mg PO DAILY cod liver oil Capsule 1 cap PO ONCE atorvastatin 80 mg tablet See Rx Instructions .ROUTE .COMPLEX Qty: 90 1RF Dose Instruction: Take 1 Tablet (80 mg) by mouth every evening. Rx Instructions: Take 1 Tablet (80 mg) by mouth every evening. levothyroxine 50 mcg tablet See Rx Instructions .ROUTE .COMPLEX Qty: 90 1RF Dose Instruction: Take 1 Tablet (50 mcg) by mouth daily. Rx Instructions: Take 1 Tablet (50 mcg) by mouth daily. Discontinued triamcinolone acetonide 55 mcg/actuation aerosol 55 mcg intranasal DAILY PRN (Reason: congestion) Date of admission: 10/21/24 11:41 Primary Care Provider: Aleksandra Hammond Admitting Provider: Mona Duran Attending physician on admission: Mona Duran Condition: Stable Quality Greater than 30 minutes (35 minutes) was performed in discussed with the patient, doing the physical examination talking about follow-up, recommendations for diet, exercise and eventual planning for staged PCI
== END 2024-10-23 13:50 | disposition home or self-care (01) | DRG 322 ==
LOC: ANHED 11:43 → ANHICU 11:58 → ANHIMU 10-23 04:33 → ANHICU 10-25 15:16
PROVIDERS: Internal Medicine; Admitting Provider Internal Medicine; Emergency Provider Emergency Medicine; PCP Family Medicine; Visit Provider Internal Medicine Cardiovascular Disease
PROC: 027035Z Dilation of Coronary Artery, One Artery with Two Drug-eluting Intraluminal Devices, Percutaneous Approach (ICD-10-PCS; CPT 93454; principal; 2024-10-21 11:50)
PROC: 027034Z Dilation of Coronary Artery, One Artery with Drug-eluting Intraluminal Device, Percutaneous Approach (ICD-10-PCS; CPT 92928; 2024-10-21 11:50)
PROC: 027035Z Dilation of Coronary Artery, One Artery with Two Drug-eluting Intraluminal Devices, Percutaneous Approach (ICD-10-PCS; 2024-10-21 11:50)
DX: I21.29 ST elevation (STEMI) myocardial infarction involving other sites (principal); I25.10 Atherosclerotic heart disease of native coronary artery without angina pectoris; E78.5 Hyperlipidemia, unspecified; E03.9 Hypothyroidism, unspecified; I34.1 Nonrheumatic mitral (valve) prolapse; E87.6 Hypokalemia; E55.9 Vitamin D deficiency, unspecified; F41.9 Anxiety disorder, unspecified; Z79.899 Other long term (current) drug therapy
CPT/HCPCS: 36415; 80053; 80061; 83036; 83735; 84100; 84484; 85025; 85610; 85730; 86850; 86900; 86901; 87641; 92978; 93005; 93454; 99285; A9270; C1725; C1753; C1769; C1874; C1887; C1894; C8929; C9606; J0583; J1327; J1644; J2003; J2250; J2305; J2371; J3010; J7040; Q9957

== ENCOUNTER 2024-11-04 08:07 | Outpatient (CLI) | payer MEDICARE, SELFPAY ==
--- OUTSIDE RECORDS SUMMARY | 2024-11-04 08:17 | XMS_ITS | Clinical Summary ---
Author Organization [facility] Address [address] [place] [address] Phone Care Team Providers Care Lumber Tying Machine Operator Name Role Phone Lisbet Hammond MD Primary [...] age to complete this topic Insurance [facility] Care Teams Lumber Tying Machine Operator Relationship Specialty Start Date End Date Lisbet Hammond MD PCP - General Family Medicine 05/18/20
--- OUTSIDE RECORDS SUMMARY | 2024-11-04 08:17 | XMS_ITS | Encounter Summary ---
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 Pt appreciated the information. * Telephone Encounter - Cortney Baldwin - 10/28/2024 9:56 AM CDT Pt wants to know when she can schedule her next stent procedure. Contact: documented in this encounter Plan of Treatment Not on file documented as of this encounter Visit Diagnoses Not on filedocumented in this encounter Care Teams Big Data Admin Relationship Specialty Start Date End Date Lisbet Hammond MD PCP - General Family Practice 03/25/19 documented as of this encounter
--- OUTSIDE RECORDS SUMMARY | 2024-11-04 08:17 | XMS_ITS | Referral Summary ---
Author Organization [address] [place] [address] [address] [place] [address] Care Team Providers Care Torts Law Professor Name Role Phone Lisbet Hammond MD Primary Care Provider Encounters Date Type Department Care Team Description 10/28/2024 Telephone [facility] Medical [facility] Cardiology [address] [place] [address] [address] [place] [phone] Jessica Sky NP 10/27/2024 Orders Only [facility] Medical [facility] Cardiology [address] [place] [address] [place] [phone] Kareem Stack MD 10/26/2024 Telephone [facility] Medical [facility] Cardiology [address] [facility] [address] [place] [phone] Kareem Stack MD 10/24/2024 Telephone [facility] Cardiology [address] [place] [address] [address] [place] [phone] Mona Duran MD 10/24/2024 Telephone [facility] Medical [facility] Cardiology [address] [place] [address] [address] [place] [address] Julian Quiñones MD from Last 3 Months Allergies No known active allergies Medications atorvastatin [...] on file 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 Gender Identity Female 10/25/2024 10:26 AM CDT Sexual Orientation Not on file Plan of Treatment Not on file Procedures Procedure Name Priority Date/Time Associated Diagnosis Comments CARDIOLOGY DOCUMENT SCAN Routine 10/23/2024 7:14 AM CDT CARDIOLOGY DOCUMENT SCAN Routine 10/23/2024 7:13 AM CDT CARDIOLOGY DOCUMENT SCAN Routine 10/22/2024 7:10 AM CDT from Last 3 Months Results * Cardiology Document Scan (10/23/2024 7:14 AM CDT) Anatomical Region Laterality Modality Other Kareem Stack MD CV CARDIAC SERVICES PROCE DURES Final Result * Cardiology Document Scan (10/23/2024 7:13 AM CDT) Anatomical Region Laterality Modality Other Kareem Stack MD CV CARDIAC SERVICES PROCE DURES Final Result * Cardiology Document Scan (10/22/2024 7:10 AM CDT) Anatomical Region Laterality Modality Other Kareem Stack MD CV CARDIAC SERVICES PROCE DURES Final Result from Last 3 Months Insurance [facility] MEDICARE ADVANTAGE Care Teams Torts Law Professor Relationship Specialty Start Date End Date Lisbet Hammond MD PCP - General Family Practice 03/25/19
--- OUTSIDE RECORDS SUMMARY | 2024-11-04 08:17 | XMS_ITS | Continuity of Care Document ---
Author Organization [facility] Address [address] [facility] [place] [address] [place] [address] Phone Care Team Providers Care Smoking Pipe Repairer Name Role Phone Josesito Berry MD Unavailable Unavailable Advance Directives Directive Yes / No Effective Date File Name No Information Encounters Encounter Description Practice Location Reason(s) For Visit Diagnoses Date Provider Providers Copied on Encounter [facility], [address] [place], [id number], [place] tel:[phone] [facility] No Information Jamal Bellamy. [address] [facility] [place], [id number], [place]. tel:[phone] Family History Family Member Type Diagnosis Age [...]
--- OUTSIDE RECORDS SUMMARY | 2024-11-04 08:17 | XMS_ITS | Clinical Summary ---
Author Organization [facility] Address [address] [place] [address] Phone Care Team Providers Care Furrier Apprentice Name Role Phone Clif Laboy MD Primary Care Provider [phone] Allergies No known active allergies Medications atorvastatin (LIPITOR) 80 mg tablet Take 80 mg by mouth Daily LATE. Active albuterol sulfate 90 mcg/Actuation inhaler INHALE 2 PUFFS BY MOUTH EVERY 4 HOURS NEEDED 8.5 Gram 11/09/2021 12:03 PM CDT 2 Active Acetic Acid (VOSOL) 2 % Solution Administer 3 drops into each ear every 6 hours for 5 days; apply to (cotton) wick; replace wick every 24 hours. 15 mL 3 Active atorvastatin (LIPITOR) 80 mg tablet Take 1 Tablet (80 mg) by mouth every evening. 90 Tablet 1 02/18/2023 12:02 PM CDT 3 Active naproxen (NAPROSYN) 500 mg tablet Take 1 Tablet (500 mg) by mouth 2 times daily. 20 Tablet 11/11/2023 3:33 PM CDT 4 Active atorvastatin (LIPITOR) 80 mg tablet Take 1 Tablet (80 mg) by mouth every evening. 90 Tablet 1 09/12/2024 11:16 AM CDT 5 Active levothyroxine 50 mcg tablet Take 1 Tablet (50 mcg) by mouth daily. 90 Tablet 1 09/12/2024 11:16 AM CDT 5 Active aspirin (ECOTRIN EC) 81 mg Tablet, Delayed Release (E.C.) Take 1 Tablet (81 mg) by mouth daily in the morning. 30 Tablet 5 Active metoprolol tartrate (LOPRESSOR) 25 mg tablet Take 0.5 Tablets (12.5 mg) by mouth 2 times daily. 30 Tablet 10/23/2024 3:24 PM CDT 5 Active nitroglycerin (NITROSTAT) 0.4 mg Tablet, Sublingual DISSOLVE 1 TABLET UNDER THE TONGUE EVERY 5 MINUTES FOR UP TO 3 DOSES NEEDED FOR CHEST PAIN. IF NO RELIEF, CALL 911. 50 Tablet 10/23/2024 3:24 PM CDT 5 Active Encounters Date Type Department Care Team Description 10/26/2024 External Device Data [facility]STRACTION Provider, Abstract 10/25/2024 External Device Data [facility] Provider, Abstract 08/24/2024 External Device Data [facility] Provider, Abstract 08/13/2024 External Device Data [facility] Provider, Abstract 08/12/2024 External Device Data [facility] Provider, Abstract 08/10/2024 External Device Data [facility] Provider, Abstract 08/09/2024 External Device Data [facility] Provider, Abstract from Last 3 Months Social History Tobacco Use Types Packs/Day Years Used Date Smoking Tobacco: Never Alcohol Use Standard Drinks/Week Comments Yes 0 (1 standard drink = 0.6 oz pur e alcohol) Comments Unknown Sex and Gender Information Value Date Recorded Sex Assigned at Not on file Legal Sex Female 4:24 PM SPECIAL DEPUTY SHERIFF Gender Identity Not on file Sexual Orientation Not on file Last Filed Vital Signs Vital Sign Reading Time Taken Comments Blood Pressure 108/48 06/06/2014 6:02 PM SPECIAL DEPUTY SHERIFF Pulse 83 06/06/2014 6:02 PM SPECIAL DEPUTY SHERIFF Temperature 36.4 C (97.6 F) 06/06/2014 4:34 PM SPECIAL DEPUTY SHERIFF Respiratory Rate 18 06/06/2014 6:02 PM SPECIAL DEPUTY SHERIFF Oxygen Saturation 97% 06/06/2014 6:02 PM SPECIAL DEPUTY SHERIFF Inhaled Oxygen Concentration - - Weight 74.8 kg (165 lb) 06/06/2014 4:34 PM SPECIAL DEPUTY SHERIFF Height 162.6 cm (5' 4) 06/06/2014 4:34 PM SPECIAL DEPUTY SHERIFF Body Mass Index 28.32 06/06/2014 4:34 PM SPECIAL DEPUTY SHERIFF Plan of Treatment Health Maintenance Due Date Last Done Comments DTAP/TDAP/TD VACCINES (1 - Tdap) 1976 BREAST CANCER SCREENING 1997 COLORECTAL SCREENING 2002 Colorectal Cancer Screening 2002 FIT-DNA Q 3 years 2002 FIT/FOBT Q 1 year 2002 Flex Sig/CT Colonography Q 5 years 2002 PNEUMOCOCCAL VACCINE 50+ YEARS (1 of 1 - PCV) 12/06/19 08 ZOSTER VACCINE (1 of 2) 12/06/2007 OSTEOPOROSIS SCREENING 2022 INFLUENZA VACCINE (#1) 2024 RSV VACCINE (60+ or ) (1 - 1-dose 75+ series) 2032 Insurance Member Subscriber Plan / Payer (Ef fective 2020-Present) Name:Maribel Hankins Relation to Subscriber:Spouse Name:HAN HANKINS Date of :1954 (Home) (Work) Address: [address] [place] [address] Payer ID:[id number] (NAIC) Type:O Address: [facility] [id number] BLUE ACCESS CHOICE RX [employer] PLANS (INTERNAL) [facility] [employer] RX [employer] RX Member Subscriber Plan / Payer (Ef fective 2022-Present) Name:Maribel Hankins Relation to Subscriber:Self Name:Maribel Hankins Payer ID:Not on file Group ID:[facility] Type:RX Medicare Part D Address: [place] Care Teams Furrier Apprentice Relationship Specialty Start Date End Date Clif Laboy MD [address] [place] [address] PCP - General Family Practice 06/06/14
--- OUTSIDE RECORDS SUMMARY | 2024-11-04 08:17 | XMS_ITS | Clinical Summary ---
Author Organization [address] [place] [address] [address] [place] [address] Care Team Providers Care Vp Cardiovascular Name Role Phone Lisbet Hammond MD Primary Care Provider Allergies No known active allergies Medications atorvastatin (LIPITOR) 80 mg tablet Take 80 mg by mouth daily Active Active Problems Problem Noted Date Diagnosed Date Precordial pain 04/12/2019 H/O mitral valve disease 04/12/2019 Mixed hyperlipidemia 04/12/2019 Elevated blood pressure reading 04/12/2019 Elevated serum creatinine 04/12/2019 Psychosocial stressors 04/12/2019 Encounters Date Type Department Care Team Description 10/28/2024 Telephone [facility] [address] [place] [address] Jessica Sky NP 10/27/2024 Orders Only [facility] [address] [place] [address] Kareem Stack MD 10/26/2024 Telephone [facility] [address] [place] [address] Kareem Stack MD 10/24/2024 Telephone [facility] [address] [place] [address] Mona Duran MD 10/24/2024 Telephone [facility] [address] [place] [address] Julian Quiñones MD from Last 3 Months Surgical History Surgery Date Site/Laterality Comments HYSTERECTOMY Medical History Medical History Date Comments Hyperlipidemia Diverticulitis Arthritis Family History Medical History Relation Name Comments Hypertension Brother Lung cancer Brother 62 y.o. Lung cancer Father 71 y.o. 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 Gender Identity Female 10/25/2024 10:26 AM CDT Sexual Orientation Not on file Obstetrics History Plan of Treatment Health Maintenance Due Date Last Done Comments Breast Cancer Screening-Mammogram 1957 Colon Cancer Screening-Colonoscopy 1957 Depression Screening 1957 Fall Risk Assessment 1957 Hepatitis C Screening 1957 Osteoporosis Screening-Bone Density Scan 1957 DTaP/Tdap/Td Vaccine (1 - Tdap) 1968 Hepatitis B Screening 12/06/1975 Pneumococcal vaccine 65+ (1 of 1 - PCV) 12/06/2007 Zoster Vaccine (1 of 2) 12/06/2007 Well Visit 65+ 2022 Influenza Vaccine (Season Ended) 2025 03/12/2019, 02/24/2018, 03/06/2016 Procedures Procedure Name Priority Date/Time Associated Diagnosis Comments CARDIOLOGY DOCUMENT SCAN Routine 10/23/2024 7:14 AM CDT CARDIOLOGY DOCUMENT SCAN Routine 10/23/2024 7:13 AM CDT CARDIOLOGY DOCUMENT SCAN Routine 10/22/2024 7:10 AM CDT from Last 3 Months Results * Cardiology Document Scan (10/23/2024 7:14 AM CDT) Anatomical Region Laterality Modality Other us Kareem Stack MD [facility] CARDIAC SERVICES PROCE DURES Final Result * Cardiology Document Scan (10/23/2024 7:13 AM CDT) Anatomical Region Laterality Modality Other us Kareem Stack MD CV CARDIAC SERVICES PROCE DURES Final Result * Cardiology Document Scan (10/22/2024 7:10 AM CDT) Anatomical Region Laterality Modality Other us Kareem Stack MD CV CARDIAC SERVICES PROCE DURES Final Result from Last [address] [facility] MEDICARE ADVANTAGE Care Teams Vp Cardiovascular Relationship Specialty Start Date End Date Lisbet Hammond MD PCP - General Family Practice 03/25/19
[2024-11-04 18:28] LABS: Free T4 Free Thyroxine 1.41 ng/dL (0.78-2.19); Vitamin D 25 Hydroxy 28.6 ng/mL
[2024-11-04 19:59] LABS: Alanine Aminotransferase 20 U/L (6-35); Albumin Level 4.4 g/dL (3.5-5.1); Alkaline Phosphatase 74 U/L (38-126); Anion Gap 9 mmol/L (4-12); Aspartate Amino Transferase 69 U/L (14-36); Bilirubin,Total 0.4 mg/dL (0.2-1.3); Blood Urea Nitrogen 20 mg/dL (7-17); Calcium 9.7 mg/dL (8.4-10.2); Carbon Dioxide 27 mmol/L (22-30); Chloride 104 mmol/L (98-107); Cholesterol 204 mg/dL (0-200); Estimated Glomerular Filt Rate > 60; Glucose 76 mg/dL (65-110); HDL Direct 40 mg/dL; Potassium 4.3 mmol/L (3.4-5.0); Sodium 140 mmol/L (137-145); Triglycerides 248 mg/dL (<150)
[2024-11-04 20:54] LABS: LDL Cholesterol Direct < 30 mg/dL
== END 2024-11-04 08:08 | disposition home or self-care (01) ==
PROVIDERS: PCP Family Medicine; Visit Provider Nurse Practitioner
DX: E78.5 Hyperlipidemia, unspecified (principal); E03.9 Hypothyroidism, unspecified; E55.9 Vitamin D deficiency, unspecified
CPT/HCPCS: 36415; 80053; 80061; 82306; 84439; 84443

== ENCOUNTER 2025-02-13 07:53 | Outpatient (CLI) | payer MEDICARE, SELFPAY ==
[2025-02-13 12:54] LABS: Hematocrit 40.7 % (37.0-47.0); Hemoglobin 13.3 g/dL (12.0-15.0); Immature Granulocyte Percent A 0.4 % (0-0.5); Lymphocytes Absolute Auto 2.16 K/mm3 (0.9-3.2); Mean Corpuscular HGB Conc 32.7 g/dl (32-36); Mean Corpuscular Hemoglobin 29.4 pg (26-34); Mean Corpuscular Volume 90.0 fl (80-100); Nucleated Red Blood Cells Absolute Auto 0.000 K/mm3 (0.0-0.012); Nucleated Red Blood Cells Perc 0.0 % (0.0-0.2); Platelet Count Result 243 k/mm3 (150-375); Red Blood Count 4.52 M/mm3 (4.2-5.4); White Blood Count 5.4 K/mm3 (4.5-10.0)
[2025-02-13 13:26] LABS: Alanine Aminotransferase 27 U/L (6-35); Albumin Level 4.2 g/dL (3.5-5.1); Alkaline Phosphatase 79 U/L (38-126); Anion Gap 8 mmol/L (4-12); Aspartate Amino Transferase 74 U/L (14-36); Bilirubin,Total 0.4 mg/dL (0.2-1.3); Blood Urea Nitrogen 13 mg/dL (7-17); Calcium 9.4 mg/dL (8.4-10.2); Carbon Dioxide 27 mmol/L (22-30); Chloride 105 mmol/L (98-107); Cholesterol 128 mg/dL (0-200); Estimated Glomerular Filt Rate > 60; Glucose 82 mg/dL (65-110); HDL Direct 40 mg/dL; Potassium 4.2 mmol/L (3.4-5.0); Sodium 140 mmol/L (137-145); Total Protein 6.9 g/dL (6.3-8.2); Triglycerides 174 mg/dL (<150)
[2025-02-13 13:32] LABS: Thyroid Stimulating Hormone Reflex 2.610 uIU/mL (0.465-4.68)
== END 2025-02-13 07:54 | disposition home or self-care (01) ==
LOC: ANHGOSHLAB 07:54
PROVIDERS: PCP Family Medicine; Visit Provider Nurse Practitioner Family
DX: I10 Essential (primary) hypertension (principal); E03.9 Hypothyroidism, unspecified; E55.9 Vitamin D deficiency, unspecified; E78.5 Hyperlipidemia, unspecified
CPT/HCPCS: 36415; 80053; 80061; 82306; 84443; 85025

== ENCOUNTER 2025-03-27 12:30 | Outpatient (RCR) | payer MEDICARE, SELFPAY ==
[2025-01-03 16:07] VITALS: PULSE 63
== END 2025-03-27 13:16 | disposition home or self-care (01) ==
LOC: ANHCPREHAB 12:30
PROVIDERS: PCP Family Medicine; Visit Provider Internal Medicine
DX: Z51.89 Encounter for other specified aftercare (principal); Z98.61 Coronary angioplasty status
CPT/HCPCS: 93798